=== PATIENT | female | born 1950 | race Caucasian/White ===

== ENCOUNTER 2025-04-25 14:32 | Emergency (ER) | payer MEDICARE, SELFPAY ==
[2025-04-25 14:32] VITALS: BP 175/64; PULSE 75; RESP 16; TEMP 37.3; O2SAT 95
--- OUTSIDE RECORDS SUMMARY | 2025-04-25 14:35 | XMS_ITS | Encounter Summary ---
Author Organization [facility] Healthcare Address [address] [place] [address] Care Team Providers Care Marine Electrician Name Role Phone Isac Fregoso MD Primary Care Provider [phone] Nguyen Segovia OD Unavailable [phone] Marly Koch DO Unavailable [phone] Ree Carrero OD Unavailable + Encounter Details Date Type Department Care Team (Late st Contact Info) Description 01/06/2025 Orders Only [facility] [address] [place] [phone] Scanning, Provider Social History Tobacco Use Types Packs/Day Years Used Date Smoking Tobacco: Never Passive Smoke Exposure: Yes Smokeless Tobacco: Never Alcohol Use Standard Drinks/Week Comments Yes 0 (1 standard drink = 0.6 oz pur e alcohol) occassional AUDIT-C Answer Date Recorded Q1: How often do you have a drink containing alc ohol? Monthly or less 06/16/2021 Q2: How many drinks containi ng alcohol do you have on a typical day when you are drinking? 1 or 2 06/16/2021 Q3: How often do you have si x or more drinks on one occasion? Less than monthly 06/16/2021 PHQ-2 Answer Date Recorded PHQ-2 Total Score (If total score is 3 or more points, staff should administer the PHQ-9) 0 10/15/2023 Personal Safety Answer Date Recorded Have you ever been in or are you currently in a harmful physical or emotional relationship or is someone making you feel afraid or unsafe? Denies 08/28/2023 Comments No Sex and Gender Information Value Date Recorded Sex Assigned at Not on file Legal Sex Female 2:14 AM CEMENT WORKER Gender Identity Not on file Sexual Orientation Not on file documented as of this encounter Plan of Treatment Upcoming Encounters Date Type Department Care Team (Late st Contact Info) Description 11/11/2025 10:30 AM CEMENT WORKER Hospital Encounter [address] [address] Jm Prabhakar MD [address] [address] [place] [address] 11/11/2025 10:30 AM CEMENT WORKER - 11/11/2025 11:00 AM CEMENT WORKER Surgery [address] [address] Jm Prabhakar MD [address] [address] [place] [address] COLONOSCOPY Scheduled Procedures Name Priority Associated Diagnoses Date/Ti me COLONOSCOPY History of colonic polyps Family history of colon cancer 11/11/2025 10:30 AM CEMENT WORKER documented as of this encounter Procedures Procedure Name Priority Date/Time Associated Diagnosis Comments PROCEDURE - RESULT 01/06/2025 documented in this encounter Results * PROCEDURE - RESULT (01/06/2025) us Provider Scanning Final Result documented in this encounter Visit Diagnoses Not on filedocumented in this encounter Care Teams Marine Electrician Relationship Specialty Start Date End Date Isac Fregoso MD [address] [place] [address] PCP - General 12/27/16 Nguyen Segovia OD [address] [place] [address] Consulting Physician Optometry 11/24/17 Marly Koch DO [address] [place] [id number] Consulting Physician Optometry 06/11/18 Ree Carrero OD [address] [place] [id number] Consulting Physician Optometry 02/14/22 documented as of this encounter
--- OUTSIDE RECORDS SUMMARY | 2025-04-25 14:35 | XMS_ITS | Referral Summary ---
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 Phone Keyonna Delatorre MD Primary Care Provider [phone] Nguyen Segovia OD Unavailable [phone] Marly Koch DO Unavailable [phone] Ree Carrero OD Unavailable + Encounters Date Type Department Care Team Description 03/02/2025 Telephone [facility] [place] [address] [place] [address] Albania Dillard 03/02/2025 9:30 AM CDT Office Visit [facility] [place] [facility] [address] [place] [address] Bessy Gonzalez NP Type 2 diabetes mellitus without complication, without long-term current use of insulin (HCC) (Primary Dx); Hypertension associated with type 2 diabetes mellitus (HCC); Vitamin D deficiency; Benign hypertension; Diabetes mellitus without complication (HCC); Colon cancer screening from Last 3 Months Allergies Active Allergy Reactions Criticality Noted Date Comments Hydrocodone Itching,Rash Medium Reaction: Rash, , Reaction: Itching, Hydrocodone-Acetaminophen Medications calcium citrate-vitamin D3 (CITRACAL WITH D) 315 mg- 250 unit per tablet Take 2 tablets by mouth 2 (two) times a day Active lancets 33 gauge misc Test BS daily. 100 each 2 3 Active blood glucose diagnostic (OneTouch Verio test strips) strip 1 each by other route as directed 3 Active ergocalciferol (VITAMIN D) 50,000 unit capsuleIndication s:Vitamin D Deficiency Take 1 capsule (50,000 Units total) by mouth once a week 12 capsule 3 4 Active carvediloL (COREG) 12.5 mg tabletIndications :Benign hypertension Take 1 tablet (12.5 mg total) by mouth 2 (two) times a day with meals 180 tablet 1 5 Active blood glucose diagnostic (OneTouch Verio test strips) stripIndications: Diabetes mellitus without complication (HCC) USE TO TEST BLOOD SUGAR DAILY 100 each 4 5 Active metFORMIN (GLUCOPHAGE) 1,000 mg tabletIndications :Type 2 diabetes mellitus without complication, without long-term current use of insulin (HCC) Take 1 tablet (1,000 mg total) by mouth daily with breakfast 90 tablet 1 5 Active valsartan (DIOVAN) 160 mg tabletIndications :Hypertension associated with type 2 diabetes mellitus (HCC) Take 1 tablet (160 mg total) by mouth nightly 90 tablet 1 5 Active Active Problems Problem Noted Date Diagnosed Date History of colonic polyps 03/02/2025 Cardiovascular risk factor 10/10/2023 Overview (10/10/2023): Ten year risk 37% as of September 2023. Assessment & Plan (08/07/2024 4:46 PM MANAGER MARKETING COMMUNICATION): New problem identified earlier this year. She needs updated labs, but risk assessment will most likely be similar to previous values with a 10 year cardiovascular risk of around 30%. I asked her to consider taking a statin medication to reduce cardiovascular risk. She will think about it and we will discuss it l by phone next week Assessment & Plan (10/15/2023 10:52 AM MANAGER MARKETING COMMUNICATION): Ten year cardiovascular risk is about 37%. She does not want to take a cholesterol medicine. She wants to keep working on her diet. We will see her back in six months. Vitamin D deficiency 10/01/2023 Overview (10/10/2023): Mild Assessment & Plan (08/02/2024 10:09 AM MANAGER MARKETING COMMUNICATION): New problem as of earlier this year, unchanged despite taking a calcium plus vitamin D3 supplement. We ordered a high dose vitamin D2 supplement and we will check a follow-up level in several months. Assessment & Plan (11/01/2023 11:58 AM MANAGER MARKETING COMMUNICATION): She takes a supplement. We will check a follow-up level with her next set of labs in six months. Closed fracture of malleolus of left ankle with routine healing 08/28/2023 Overview (10/10/2023): She missed the last step on stairs at home, heard a pop, went to ER at [facility]. Follow-up imaging on 09/03/[address] [facility] in [place] shows normal healing. >>OVERVIEW FOR CLOSED FRACTURE OF PART OF FIBULA WRITTEN ON 10/10/2023 5:29 AM BY KEYONNA DELATORRE MD Subacute transverse fracture near tip of distal left fibula without remarkable displacement or angulation. Calcaneal spurs. [facility]. Assessment & Plan (08/02/2024 10:05 AM MANAGER MARKETING COMMUNICATION): New problem as of last winter. She missed the last step on stairs at home, heard a pop. Imaging showed a fracture at the tip of the distal left fibula without displacement. She was managed conservatively and still has a little bit of discomfort in the ankle. This qualifies as a fragility fracture so we recommended that she start on medication to improve bone density. Vitamin-D level remains little low so we started her on high-dose vitamin-D. She will read about bisphosphonates and other options for treatment and let me know about her decision. Assessment & Plan (10/15/2023 10:52 AM MANAGER MARKETING COMMUNICATION): She took a bad step off of her deck recently and suffered an avulsion fracture of the left distal fibula. This qualifies as a fragility fracture. We discussed this in relation to her low bone density and recommendations for bisphosphonates or other therapy. She wants to see what her follow-up bone density is first before deciding on treatment. Perennial non-allergic rhinitis 03/29/2022 Overview (10/09/2022): Sphenoid surgery in 2019 helped, but has had a recurrence of chronic nasal congsstion and watery eyes. Assessment & Plan (04/09/2023 10:12 AM CDT): Astelin did not help her chronic cough or nasal drainage. We removed it from her list. Assessment & Plan (10/09/2022 10:40 AM MANAGER MARKETING COMMUNICATION): She has chronic, probably non-allergic, sinus congestion and drainage. Her eyes also water constantly, but there is no itching or redness. We will have her try Astelin for the nasal congestion. If this does not work, we recommended a trial of nasal steroids. We discussed a trial of eye drops for the watery eyes, e.g., Cromolyn, but since the etiology is unclear, we are deferring for now. Chronic right shoulder pain 10/30/2019 Overview (08/21/2020): Deep pain, worse at night. Mostly anterior. No known injury. Assessment & Plan (08/27/2020 3:39 PM MANAGER MARKETING COMMUNICATION): Her right shoulder has been bothering her for the past 8-9 months. No known injury. It is a deep pain and is worse at night. Exam is fairly unremarkable, although there is some tenderness of the AC joint where her bra strap settles. She does not want a referral to physical therapy right now. She will look up exercises to do at home and call for imaging and referral if things are not improving. Family history of colon cancer 10/05/2019 Overview (10/08/2022): Added automatically from request for surgery [id number], Tubular adenoma, transverse colon, removed, Dr. Prabhakar, [facility], 11/17/2019. Low bone density 06/21/2019 Overview (11/11/2023): FINDINGS: The mean bone mineral content of the lumbar spine is 1.039 g/cm2. The T-score is -0.1 consistent with normal bone mineral density. The mean bone mineral content of the left hip is 0.899 g/cm2. The neck T-score is -1.1. The total T-score is -0.4. This is consistent with osteopenia. 10 year fracture risk for major osteoporotic fracture is 8.3%, for hip fracture 0.7%. Impression 1. WHO CLASSIFICATION FOR LUMBAR SPINE IS NORMAL. 2. [facility] OR CLASSIFICATION FOR HIP IS OSTEOPENIA. Follow-up bone density on 08/10/2021 shows similar results. Follow up on 11/10/2023, femoral neck T score -1.6. Assessment & Plan (08/02/2024 10:08 AM MANAGER MARKETING COMMUNICATION): Chronic, present for more than five years with a recent fragility fracture. We recommended treatment with a bisphosphonate, PTH analogue, or osteoclast inhibitor, risks of various medications discussed. She wants to think about the options and let me know. Part of the problem is that she has difficulty affording prescription medications. Assessment & Plan (10/15/2023 10:54 AM MANAGER MARKETING COMMUNICATION): She takes calcium and vitamin-D supplements. She is due for a follow-up bone density which we ordered today. Assessment & Plan (04/09/2023 10:11 AM CDT): She takes calcium and vitamin-D supplements. Continue same. Assessment & Plan (10/09/2022 10:32 AM MANAGER MARKETING COMMUNICATION): She is on calcium and vitamin D supplements. Continue same. Assessment & Plan (10/07/2021 5:21 AM MANAGER MARKETING COMMUNICATION): She takes calcium and vitamin-D. A recent bone density was stable compared to two years ago, normal at the lumbar spine and low bone density in the hip. Continue same. Assessment & Plan (02/21/2021 2:04 PM CDT): She is on a calcium plus vitamin-D supplement. Continue same. Assessment & Plan (08/21/2020 12:53 PM MANAGER MARKETING COMMUNICATION): She takes calcium and vitamin-D supplements. Continue same. Assessment & Plan (02/14/2020 10:14 AM CDT): She has started to take a calcium and vitamin-D supplement which should mitigate some of the mild osteopenia diagnosed recently. Family hx of colon cancer 05/12/2019 Overview (05/12/2019): Added automatically from request for surgery [id number] Chronic sphenoidal sinusitis 10/10/2018 Overview (02/13/2020): Resolved after surgery per ENT Assessment & Plan (10/09/2022 10:29 AM MANAGER MARKETING COMMUNICATION): She has chronic, probably non-allergic, sinus congestion and drainage. This improved for a while after sphenoid sinus surgery about 4 years ago, but symptoms have recurred. She did not respond to a 3 month trial of oral antihistamines last year. We will have her try Astelin or Flonase which are available OTC (starting with Astelin). Assessment & Plan (10/28/2018 8:31 AM MANAGER MARKETING COMMUNICATION): Patient has been diagnosed with a chronic fungal sphenoid sinusitis. Patient is status post image guided endoscopic left sphenoidotomy with evacuation of sphenoid contents. Preoperative symptoms have resolved. Patient is no longer experiencing a left-sided headache. No further treatment is indicated at this time. Patient can follow back up as needed. Assessment & Plan (10/10/2018 10:19 AM MANAGER MARKETING COMMUNICATION): Patient has a completely opacified left sphenoid sinus with soft tissue eroding through the ostium entering into the sphenoid ethmoidal recess. This was identified on CT imaging that was obtained as result of chronic left-sided ocular and perifacial headaches that are likely the result of these findings. Based on patient's history, my physical findings and results of diagnostic imaging patient meets indications to undergo a left image guided endoscopic sphenoidotomy with evacuation of sphenoid contents. Specimen will be obtained for histopathology in possible cultures. The procedure was explained in detail to the patient and her as well as expected postoperative outcome and recovery. All questions were answered to what appeared to be patient's understanding and satisfaction. After the procedure was explained in full the potential risk, complications, benefits and alternatives patient would like to proceed. Patient will be scheduled in a timely fashion. Hypertension associated with type 2 diabetes franchesca litus 10/22/2016 Overview (01/03/2017): Benign hypertension Assessment & Plan (08/07/2024 4:49 PM MANAGER MARKETING COMMUNICATION): Chronic, present for more than five years, uncontrolled with systolic above goal. She does not check blood pressure regularly at home. We recommended increasing valsartan to 160 mg nightly. We asked her to start checking blood pressure more regularly at home and call us in about two weeks with readings. BP Readings from Last 3 Encounters: 08/02/24 152/76 10/15/23 150/80 08/28/23 166/71 Assessment & Plan (11/01/2023 11:57 AM MANAGER MARKETING COMMUNICATION): Systolic blood pressure in the office is mildly elevated. She does not check regularly at home. We discontinued lisinopril awhile back because of a bad cough with resolution of those symptoms. She is on carvedilol. We discussed options and I recommended starting an angiotensin receptor damián, risks of medication discussed. We will have her start checking blood pressure at home and call us in a month with readings. Assessment & Plan (04/20/2023 3:05 PM CDT): She cut back the carvedilol on her own, thinking she did not need to take it twice a day. Systolic blood pressure is somewhat borderline. We recommended that she resume carvedilol 12.5 mg twice a day. Assessment & Plan (10/09/2022 10:31 AM MANAGER MARKETING COMMUNICATION): Blood pressure is in a good range on current therapy (Coreg 12.5 mg twice a day). She denies chest pain or pressure. Labs are stable. Continue same. Lab Results Component Value Date GLUCOSE 129 (H) 09/06/2022 CALCIUM 9.5 09/06/2022 SODIUM 140 09/06/2022 POTASSIUM 4.6 09/06/2022 CO2 25 09/06/2022 CHLORIDE 107 09/06/2022 BUNSER 22 09/06/2022 CREATININE 0.77 09/06/2022 Assessment & Plan (10/04/2021 2:54 PM MANAGER MARKETING COMMUNICATION): Systolic blood pressure is mildly elevated today. She only checks blood pressures occasionally at home. I recommended more frequent checks and I asked her to call us in two weeks with a report to see if medications need to be adjusted. Assessment & Plan (07/15/2021 4:03 PM CDT): She has not been taking the losartan prescribed at the hospital. She thought it was one that gave her a bad cough a few years ago, but I believe that was lisinopril. I reviewed the records, and the stated reason for stopping the losartan three years ago was cost. Since her blood pressure is in a reasonable range at this time, we will see how she is doing at her follow-up. Assessment & Plan (02/26/2021 9:59 AM CDT): Systolic blood pressure is somewhat borderline. She is on carvedilol 12.5 twice a day. Her recent labs are stable. Continue same and follow-up in six months. Lab Results Component Value Date GLUCOSE 155 (H) 02/13/2021 CALCIUM 9.4 02/13/2021 SODIUM 141 02/13/2021 POTASSIUM 5.1 02/13/2021 CO2 27 02/13/2021 CHLORIDE 106 02/13/2021 BUNSER 18 02/13/2021 CREATININE 0.76 02/13/2021 Assessment & Plan (08/21/2020 12:53 PM MANAGER MARKETING COMMUNICATION): Blood pressure is in a good range on current therapy. Continue same, and follow- up in six months. Assessment & Plan (02/14/2020 10:14 AM CDT): She is not checking blood pressure regularly at home, and when she took it this morning the systolic was somewhat borderline. Diastolic is in a good range. She denies having any chest pain. We discussed possibly increasing the dose of olmesartan, but she would like to continue efforts to lose weight and see if that brings her blood pressure down into a better range. We will see her again in six months. Assessment & Plan (06/14/2019 10:03 AM CDT): Blood pressure is a bit high. For some reason, she stopped taking Benicar. It is unclear exactly why. She does not remember having any side effects. We sent in a refill. Hopefully this will bring her blood pressure down. Follow-up in six months. Assessment & Plan (11/26/2018 10:43 AM MANAGER MARKETING COMMUNICATION): Blood pressure remains mildly elevated. She did not tolerate lisinopril because of a cough. We will put her on Benicar. Hopefully this will bring blood pressure down into a better range. Follow-up in six months. Assessment & Plan (05/25/2018 9:58 AM CDT): Blood pressure is in a good range. She is tolerating her medications. Labs are stable. Continue same and follow-up in six months. Assessment & Plan (11/24/2017 9:50 AM MANAGER MARKETING COMMUNICATION): Blood pressure is improved but still somewhat borderline. If it remains elevated at her next visit, we will probably want to add a medication or increase the dose of carvedilol. Carpal tunnel syndrome 07/22/2016 Overview (01/04/2017): Carpal tunnel syndrome Polyp of colon 02/13/2016 Overview (02/13/2020): Tubular adenoma, transverse colon, removed, Dr. Prabhakar, [facility], 11/17/2019. Type 2 diabetes mellitus without complication Overview (01/03/2017): Type 2 DM Assessment & Plan (08/07/2024 4:51 PM MANAGER MARKETING COMMUNICATION): Chronic, uncontrolled, hemoglobin A1c currently not at goal consistent with hyperglycemia. She has had significant social disruptions with her 's various maladies. Since the change is minimal, we left her on her current dose of metformin 1000 mg daily and encouraged her to work on her diet. We will see her back in six months with labs. Lab Results Component Value Date HGBA1C 7.2 (H) 03/25/2024 HGBA1C 7.0 (H) 10/01/2023 HGBA1C 6.8 (H) 03/25/2023 Lab Results Component Value Date MICROALBUR 0.7 10/01/2023 CREATININE 0.71 10/01/2023 Assessment & Plan (10/15/2023 10:57 AM MANAGER MARKETING COMMUNICATION): She takes metformin. Diabetes control is adequate. She is due for eye exam. Follow-up in six months with labs. Lab Results Component Value Date HGBA1C 7.0 (H) 10/01/2023 HGBA1C 6.8 (H) 03/25/2023 HGBA1C 6.7 (H) 09/06/2022 Lab Results Component Value Date MICROALBUR 0.7 10/01/2023 CREATININE 0.71 10/01/2023 Assessment & Plan (04/09/2023 10:13 AM CDT): Diabetes is well controlled with metformin and diet. Fasting blood sugars typically are 90-120 mg/dL. HbA1c is in a good range. She actually reduced the dose of metformin about 2-3 weeks ago from 1000 mg twice a day to 1000 mg daily which is reasonable. We will see her back in six months. Lab Results Component Value Date HGBA1C 6.8 (H) 03/25/2023 HGBA1C 6.7 (H) 09/06/2022 HGBA1C 6.7 (H) 03/28/2022 Lab Results Component Value Date MICROALBUR 0.3 10/10/2022 CREATININE 0.77 09/06/2022 Assessment & Plan (10/09/2022 10:33 AM MANAGER MARKETING COMMUNICATION): Blood sugar is well-controlled on current Rx. Continue same. Follow up in 6 months. Lab Results Component Value Date HGBA1C 6.7 (H) 09/06/2022 HGBA1C 6.7 (H) 03/28/2022 HGBA1C 7.4 (H) 09/17/2021 Lab Results Component Value Date MICROALBUR 0.5 09/17/2021 CREATININE 0.77 09/06/2022 Assessment & Plan (04/05/2022 1:11 PM CDT): Patient has been working to be more active and avoid fast foods. Her HgbA1C has shown much improvement and is now 6.7%. She is taking metformin and tolerating well. Will continue present medication dose. Encouraged continued lifestyle modification. She will have f/u diabetic labs prior to her annual visit. Assessment & Plan (10/07/2021 5:21 AM MANAGER MARKETING COMMUNICATION): Blood sugars generally run 100-120 mg/dL in the morning. Once she had a blood sugar as low as 86. HbA1c reflects a possibly higher average blood sugar. She apparently did not adhere to a strict diet over the holidays. Overall she seems to be doing pretty well so we will continue current therapy and have her follow-up in six months. Her diabetic eye exam is due between now and then. Lab Results Component Value Date HGBA1C 7.4 (H) 09/17/2021 HGBA1C 7.0 (H) 02/13/2021 HGBA1C 6.9 (H) 08/17/2020 Lab Results Component Value Date MICROALBUR 0.5 09/17/2021 CREATININE 0.72 09/17/2021 Assessment & Plan (06/29/2021 2:32 PM CDT): She was previously pretty well controlled on 500 mg metformin twice a day. In the hospital and on steroids, she had to have insulin shots. Blood sugar in the office today is 279, so there is probably some residual effect of the steroids. We will increase the metformin to 1000 mg twice a day. She will start to check blood sugar at home again. Follow-up in August as scheduled or sooner if needed. Lab Results Component Value Date GLUCOSE 252 (H) 06/23/2021 CALCIUM 8.8 06/23/2021 SODIUM 140 06/23/2021 POTASSIUM 4.2 06/23/2021 CO2 27 06/23/2021 CHLORIDE 104 06/23/2021 BUNSER 20 06/23/2021 CREATININE 0.63 06/23/2021 Assessment & Plan (02/21/2021 2:03 PM CDT): Diabetes is well controlled with metformin and diet. Continue same, and follow- up in six months. Lab Results Component Value Date HGBA1C 7.0 (H) 02/13/2021 Assessment & Plan (08/27/2020 3:34 PM MANAGER MARKETING COMMUNICATION): Blood sugars have been in a good range and sometimes even a little low. This morning blood sugar was 84 mg%. A few days ago it was down as low as 54 mg% and was associated with some nausea. Hemoglobin A1c is in a good range. We will lower the dose of metformin to 500 mg twice a day and she will continue to monitor blood sugars at home. We discussed the recommendation for all patients with diabetes to take a statin medication, but she says her cholesterol numbers have always been good, and she does not want to take one at this time. We will revisit this issue periodically. Lab Results Component Value Date HGBA1C 6.9 (H) 08/17/2020 Lab Results Component Value Date CHOL 178 12/06/2019 CHOL 176 11/09/2018 CHOL 185 04/24/2018 Lab Results Component Value Date HDL 67 12/06/2019 HDL 69 11/09/2018 HDL 73 04/24/2018 Lab Results Component Value Date LDL 88 12/06/2019 LDL 86 11/09/2018 LDL 88 04/24/2018 Lab Results Component Value Date TRIG 124 12/06/2019 TRIG 113 11/09/2018 TRIG 142 04/24/2018 Assessment & Plan (02/14/2020 10:15 AM CDT): Blood sugars seem to be in a pretty good range, and hemoglobin A1c shows good control. Other labs are stable and there is no protein in the urine. She had her diabetic eye exam recently, we will get that report. We will see her back in six months. Assessment & Plan (06/14/2019 10:05 AM CDT): Blood sugars are pretty well controlled, mostly in the low 100 mg/dL range. This is reflected in a hemoglobin A1c of 7.1% which is adequate control for now. Her eye exam is due, and she will get that done. Remainder of her exam is unremarkable. We will see her back in six months with additional follow-up diabetic labs. Assessment & Plan (12/01/2018 2:35 PM MANAGER MARKETING COMMUNICATION): Hemoglobin A1c has a bit higher at 7.4. This surprises her because her blood sugars are usually in the low 100 mg/dL range when she checks them at home. She will work harder on her diet and on some weight loss and we will get a follow-up in six months. Assessment & Plan (05/25/2018 10:03 AM CDT): Blood sugars are in the low 100 mg/dL range when she checks at home. Hemoglobin A1c is 6.9. There is no protein in her urine. She had a recent eye exam that showed no diabetic retinopathy. In general she is well controlled and we will continue current therapy. Assessment & Plan (11/24/2017 9:49 AM MANAGER MARKETING COMMUNICATION): Hemoglobin A1c on recent labs was 6.5 which represents pretty good control. Sometimes her morning blood sugars are 150-160, other times as low as 89. She will continue to work on her diet and continue medications as prescribed. Follow-up in six months. Family history of ischemic h eart disease and other diseases of the circulatory system 09/12/2011 Overview (08/21/2020): Per [facility] records. Neuropathy 02/27/2006 Overview (01/03/2017): Neuropathy Assessment & Plan (11/26/2018 10:44 AM MANAGER MARKETING COMMUNICATION): She has a peripheral neuropathy in her feet which predates the onset of her diabetes. She also has what could be a mononeuritis in the right lower thoracic distribution. It has defied diagnostic efforts. It could also be a pinched nerve in her back. It seems to be exacerbated by changes in position which suggests a more mechanical cause. Sometimes it can be as severe as 9/10. We discussed possible referral to Pain Management for further evaluation and treatment. However, she wants to continue observing for now and see if it gets better. I recommended some mild stretching exercises and weight loss. Assessment & Plan (05/25/2018 10:01 AM CDT): She has an unexplained neuropathy in her legs, could be due to diabetes but in general her diabetes is well controlled so this seems unlikely. Her monofilament exam is normal. Continue to monitor. Class 1 obesity due to exces s calories with serious comorbidity and body mass index (BMI) of 30.0 to 30.9 in adult 02/27/2006 Overview (08/01/2024): BMI fluctuates. Assessment & Plan (08/02/2024 10:03 AM MANAGER MARKETING COMMUNICATION): Chronic, uncontrolled but stable. Weight has not really changed. We encouraged attention to her diet and hopefully some weight loss. Assessment & Plan (10/15/2023 10:54 AM MANAGER MARKETING COMMUNICATION): We encouraged attention to her diet, and hopefully a little bit of weight loss. Assessment & Plan (04/09/2023 10:11 AM CDT): Her weight is stable. We encouraged attention to her diet and hopefully a little bit of weight loss. Assessment & Plan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 individualized based on duration of diabetes, age, comorbid conditions, and other considerations. Currently, no consensus exists regarding use of hemoglobin A1c for diagnosis of diabetes for children. Blood 01/11/2025 8:37 AM CDT 01/12/2025 11:48 AM CDT Narrative [facility] - 01/13/2025 12:33 PM CDT FASTING:YES FASTING: YES Keyonna Delatorre MD LAB BLOOD ORDERABLES Final Re sult [facility] [address] [facility] [place] [address] * Lipid panel (01/11/2025 8:37 AM CDT) Pathologist [facility] [place] Cholesterol 192 <200 mg/dL [facility] HDL 80 > OR = 50 mg/dL [facility] Triglycerides 80 <150 mg/dL [facility] LDL 95 mg/dL (calc) [facility] Comment: Reference range: <100 Desirable range <100 mg/dL for primary prevention; <70 mg/dL for patients with CHD or diabetic patients with > or = 2 CHD risk factors. LDL-C is now calculated using the Brendan-Lipscomb calculation, which is a validated novel method providing better accuracy than the Friedewald equation in the estimation of LDL-C. Brendan BUCHANAN et al. JOHN. 2013;310(19): 5027-5723 (http://education.Ecast.Kronomav Sistemas/faq/RDE221) Chol/HDL ratio 2.4 <5.0 (calc) [facility] Non-HDL, (LDL+VLDL) 112 <130 mg/dL (calc) [facility] Comment: For patients with diabetes plus 1 major ASCVD risk factor, treating to a non-HDL-C goal of <100 mg/dL (LDL-C of <70 mg/dL) is considered a therapeutic option. Blood 01/11/2025 8:37 AM CDT 01/12/2025 11:48 AM CDT Narrative [facility] - 01/13/2025 12:33 PM CDT FASTING:YES FASTING: YES us Keyonna Delatorre MD LAB BLOOD ORDERABLES Final Re sult [facility] [address] [id number] * (ABNORMAL) Comprehensive metabolic panel (01/11/2025 8:37 AM CDT) Glucose 147(H) 65 - 99 mg/dL [facility] Comment: Fasting reference interval For someone without known diabetes, a glucose value >125 mg/dL indicates that they may have diabetes and this should be confirmed with a follow-up test. BUN 18 7 - 25 mg/dL [facility] Creatinine 0.80 0.60 - 1.00 mg/dL [facility] eGFR 78 > OR = 60 mL/min/1.7 3m2 [facility] BUN/creat ratio SEE NOTE: 6 - 22 (calc) [facility] Comment: Not Reported: BUN and Creatinine are within reference range. Sodium 141 135 - 146 mmol/L [facility] Potassium, pl 5.0 3.5 - 5.3 mmol/L [facility] Chloride 106 98 - 110 mmol/L [facility] CO2 29 20 - 32 mmol/L [facility] Calcium 9.3 8.6 - 10.4 mg/dL [facility] Protein, sr 6.6 6.1 - 8.1 g/dL [facility] Albumin 4.3 3.6 - 5.1 g/dL [facility] GLOBULIN 2.3 1.9 - 3.7 g/dL (calc) [facility] Alb/glob ratio 1.9 1.0 - 2.5 (calc) [facility] Bilirubin, total 0.7 0.2 - 1.2 mg/dL [facility] Alk phos 59 37 - 153 U/L [facility] AST 13 10 - 35 U/L [facility] ALT (SGPT) 14 6 - 29 U/L [facility] Blood 01/11/2025 8:37 AM CDT 01/12/2025 11:48 AM CDT Narrative [facility] - 01/13/2025 12:33 PM CDT FASTING:YES FASTING: YES us Keyonna Delatorre MD LAB BLOOD ORDERABLES Final Re sult [facility] [address] [id number] * DIABETES EYE EXAM (01/06/2025 10:08 AM CDT) SCRIBED DIABETIC DILATED EYE EXAM Normal Comment:No diabetic retinopa thy/ patient refused dilated fundus exam Historical Provider HEALTH MAINTENANCE Final Result * Screening Mammogram Bilateral W Axel (04/08/2024 8:45 AM CDT) Anatomical Region Laterality Modality Breast Bilateral Mammography 04/08/2024 5:48 PM CDT Impressions 04/08/2024 5:48 PM CDT There is no mammographic evidence of malignancy. A 1 year screening mammogram is recommended. BI-RADS: 1 - Negative. The patient has been or will be contacted. The patient will be entered into a reminder system with a target due date of 1 year for her next mammogram. Electronically signed by: Venancio Morrison M.D. Narrative 04/08/2024 5:48 PM CDT EXAMINATION: SCREENING MAMMOGRAM BILATERAL W AXEL ORDERING HEALTHCARE PROVIDER: KEYONNA DELATORRE HISTORY: Routine screening mammography. COMPARISON: 10/16/2022, 10/09/2021, 09/01/2020 TECHNIQUE: CC and MLO views of the bilateral breasts were obtained with digital technique using breast tomosynthesis with C view. Computer aided detection was utilized. FINDINGS: DENSITY: There are scattered fibroglandular elements in the bilateral breasts. BREASTS: There are no suspicious masses, suspicious calcifications, or other suspicious findings in either breast. There has been no suspicious interval change. 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 FINDINGS: AP LUMBAR SPINE L1-L4: Total BMD is 1.077 g/cm2 T-score is 0.3 LEFT HIP: Total BMD is 0.939 g/cm2 T-score is 0.0 Femoral neck BMD is 0.675 g/cm2 T-score is -1.6 FRAX: 10 year risk for a major osteoporotic fracture is 10 %, 10 year risk for a hip fracture is 1.6 % IMPRESSION: Low Bone Mass. REFERENCE: Bone mineral density: Normal (T-score above or = -1.0) Low bone mass (T-score between -1.0 and -2.5) replaces the previously used term osteopenia Osteoporosis (T-score = or below -2.5) Please see below follow up recommendations. Medical evaluation for secondary causes of low bone mineral density may be appropriate. FRAX is a World Health Organization validated fracture risk assessment tool that calculates a person's 10 year probability of a major osteoporosis related fracture and hip fracture. According to the National Osteoporosis Foundation guidelines, postmenopausal women and men age 50 or older with low bone mass and a 10 year probability of a major osteoporosis related fracture = or greater than 20% or a 10 year probability of a hip fracture = or greater than 3% should be considered for pharmacological treatment for the prevention of osteoporosis. For further information, including treatment recommendations, please refer to the 2019 ISCD Official Positions (http://www.iscd.org) and the NOF's Clinician's Guide to Prevention and Treatment of Osteoporosis (http://www.nof.org/professionals/clinical-guidelines) THIS IS AN ELECTRONICALLY VERIFIED FINAL REPORT 11/10/2023 8:12 PM - Electronically signed by Stiven Galeano M.D. 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 FINDINGS: AP LUMBAR SPINE L1-L4: Total BMD is 1.077 g/cm2 T-score is 0.3 LEFT HIP: Total BMD is 0.939 g/cm2 T-score is 0.0 Femoral neck BMD is 0.675 g/cm2 T-score is -1.6 FRAX: 10 year risk for a major osteoporotic fracture is 10 %, 10 year risk for ahip fracture is 1.6 % IMPRESSION: Low Bone Mass. REFERENCE: Bone mineral density: Normal (T-score above or = -1.0) Low bone mass (T-score between -1.0 and -2.5) replaces thepreviously used term osteopenia Osteoporosis (T-score = or below -2.5) Please see below follow up recommendations. Medical evaluation forsecondary causes of low bone mineral density may be appropriate. FRAX is a World Health Organization validated fracture risk assessmenttool that calculates a person's 10 year probability of a major osteoporosisrelated fracture and hip fracture. According to the National OsteoporosisFoundation guidelines, postmenopausal women and men age 50 or older with low bonemass and a 10 year probability of a major osteoporosis related fracture = or greater than 20% or a 10 year probability of a hip fracture = or greaterthan 3% should be considered for pharmacological treatment for the preventionof osteoporosis. For further information, including treatment recommendations, please referto the 2019 ISCD Official Positions (http://www.iscd.org) and the NOF's Clinician's Guide to Prevention and Treatment of Osteoporosis (http://www.nof.org/professionals/clinical-guidelines) THIS IS AN ELECTRONICALLY VERIFIED FINAL REPORT 11/10/2023 8:12 PM - Electronically signed by Stiven Galeano M.D. MF: [email or web address] Report ID: [id number] Reading Location: [place] [address] Keyonna Delatorre MD IMG DXA PROCEDURES Final Resu lt * Hepatitis C antibody (12/06/2019 8:30 AM CDT) Hep C Ab NON-REACT JESUS MANUEL NON-REACT JESUS MANUEL [facility] [place] SIGNAL TO CUT-OFF 0.01 <1.00 [facility] [place] Comment: HCV antibody was non-reactive. There is no laboratory evidence of HCV infection. In most cases, no further action is required. However, if recent HCV exposure is suspected, a test for HCV RNA (test code 42474) is suggested. For additional information please refer to http://education.SynAgile/faq/RVY14y2 (This link is being provided for informational/ educational purposes only.) 12/06/2019 8:30 AM CDT 12/07/2019 8:03 AM CDT Narrative [facility] - 12/07/2019 1:34 PM CDT FASTING:YES FASTING: YES Resulting Agency Comment Performing Organization Information: Site ID: [id number] Name: [id number] Address: [address] [address] Director: Jeff Duran D.O., MPH Keyonna Delatorre MD LAB MICROBIOLOGY - GENERAL OR DERABLES Final Result [facility] [place] * COLONOSCOPY (11/17/2019 8:55 AM MANAGER MARKETING COMMUNICATION) Anatomical Region Laterality Modality Other Narrative Procedure Note Jm Prabhakar MD - 11/17/2019 8:55 AM CST [facility] Patient Name: Allyson Reyes Procedure Date: 11/17/2019 8:55 AM Date of : 1950 Admit Type: Outpatient Age: 68 Gender: Female Attending MD: Jm Prabhakar M.D. Room: [facility] 1 Note Status: Finalized Patient Profile: This is a 68 year old female. History of polyps. Grandfather had colon cancer. Procedure: Colonoscopy Indications: Last colonoscopy: January 2016 Referring MD: Keyonna Delatorre M.D. Providers: Jm Prabhakar M.D. Impression: - One 4 mm polyp at the ileocecal valve, removedwith a jumbo cold forceps. Resected and retrieved. - One 3 mm polyp in the proximal transverse colon, removed with a jumbo cold forceps. Resected and retrieved. - Diverticulosis in the sigmoid colon. - Internal hemorrhoids. Recommendation: - Await pathology results. - Repeat colonoscopy in 5 years for screeningpurposes. - Continue present medications. Medicines: Monitored Anesthesia Care Complications: No immediate complications. Estimated Blood Loss: Estimated blood loss: none. Procedure: Pre-Anesthesia Assessment: - Prior to the procedure, a History and Physical was performed, and patient medications and allergieswere reviewed. The patient's tolerance of previous anesthesia was also reviewed. The risks and benefitsof the procedure and the sedation options and riskswere discussed with the patient. All questions were answered, and informed consent was obtained. Prior Anticoagulants: The patient has taken no previous anticoagulant or antiplatelet agents. ASA Grade Assessment: II - A patient with mild systemicdisease. After reviewing the risks and benefits, the patientwas deemed in satisfactory condition to undergo the procedure. The benefits, risks and alternatives of theprocedure and sedation were discussed and informed consent was obtained. All questions were answered. Please referto the signed informed consent document in the medical record. The scope was passed under direct vision.The Pediatric Colonoscope PCF-H190L [id number] was introduced through the anus and advanced to the the cecum, identified by appendiceal orifice andileocecal valve. The bowel preparation used was Miralax. The bowel preparation used was bisacodyl tablets. Bowel prep was administered using a split dose. Thequality of the bowel preparation was good. Findings: The perianal and digital rectal examinations were normal. The cecum appeared normal. A 4 mm polyp was found in the ileocecal valve. The polyp was flat.The polyp was removed with a jumbo cold forceps. Resection and retrieval were complete. The ascending colon was unremarkable. A 3 mm polyp was found in the proximal transverse colon. The polypwas sessile. The polyp was removed with a jumbo cold forceps. Resectionand retrieval were complete. The descending colon was unremarkable. A few small-mouthed diverticula were found in the sigmoid colon. Internal hemorrhoids were found during retroflexion. The hemorrhoids were medium-sized. Electronically signed by Jm Prabhakar M.D. Jm Prabhakar M.D. 11/17/2019 9:51:14 AM Number of Addenda: 0 Note Initiated On: 11/17/2019 8:55 AM Procedure Code(s): --- Professional --- 41751, Colonoscopy, flexible; with biopsy, single or multiple Diagnosis Code(s): --- Professional --- K64.8, Other hemorrhoids D12.0, Benign neoplasm of cecum D12.3, Benign neoplasm of transverse colon (hepatic flexure orsplenic flexure) K57.30, Diverticulosis of large intestine without perforation orabscess without bleeding CPT copyright 2017 [employer] [employer]. All rights reserved. The codes documented in this report are preliminary and upon talent acquisition associate reviewmay be revised to meet current compliance requirements. 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 DIRECTIVE 03/02/2025 [facility] - YS ORDER FOR PT PREFERENCES * Full Code (Latest Code Status on File) Date Activated Date Inactivated Comments 06/16/2021 9:01 PM 06/23/2021 11:15 PM * Full Code Date Activated Date Inactivated Comments 11/17/2019 8:08 AM 11/17/2019 2:50 PM * Full Code Date Activated Date Inactivated Comments 11/17/2019 8:08 AM 11/17/2019 8:08 AM Care Teams 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
--- OUTSIDE RECORDS SUMMARY | 2025-04-25 14:35 | XMS_ITS | Clinical Summary ---
Author Organization [facility] Address [address] [place] [address] Care Team Providers Care Canvas Goods Supervisor Name Role Phone Isac Fregoso MD Primary Care Provider [phone] Allergies Active Allergy Reactions Criticality Noted Date Comments Hydrocodone-Acetaminophen Itching 11/18/2011 Medications calcium citrate-vitamin D 315 mg-6.25 mcg 315-6.25 MG-MCG Tab tablet Take 2 tablets by mouth 2 (two) times daily. Active carvedilol (COREG) 12.5 MG tablet Take 1 tablet (12.5 mg total) by mouth 2 (two) times daily with meals. 08/01/2023 Active ONETOUCH VERIO test strip USE TO TEST BLOOD SUGAR DAILY 05/01/2023 Active metFORMIN (GLUCOPHAGE) 1000 MG tablet Take 1 tablet (1,000 mg total) by mouth daily with breakfast. Active Active Problems Problem Noted Date Diagnosed Date Other closed fracture of dis radha end of left fibula with routine healing, subsequent encounter 09/07/2023 Family History Medical History Relation Comments Cancer Father Breast Cancer Maternal Aunt Colon Cancer Maternal Grandfather Diabetes Mother Relation Status Comments Father Maternal Aunt Alive Maternal Grandfather Mother Social History Tobacco Use Types Packs/Day Years Used Date Smoking Tobacco: Never Smokeless Tobacco: Never Tobacco Cessation:Counseling Given: Not Answered Alcohol Use Standard Drinks/Week Comments Not Currently 0 (1 standard drink = 0.6 oz pur e alcohol) Rarely Comments Unknown Sex and Gender Information Value Date Recorded Sex Assigned at Not on file Legal 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 Gender Identity Not on file Sexual Orientation Not on file Last Filed Vital Signs Vital Sign Reading Time Taken Comments Blood Pressure - - Pulse - - Temperature - - Respiratory Rate - - Oxygen Saturation - - Inhaled Oxygen Concentration - - Weight 72.6 kg (160 lb) 10/02/2023 9:48 AM POLICE ACADEMY INSTRUCTOR Height 157.5 cm (5' 2) 10/02/2023 9:48 AM POLICE ACADEMY INSTRUCTOR Body Mass Index 29.26 10/02/2023 9:48 AM POLICE ACADEMY INSTRUCTOR Plan of Treatment Health Maintenance Due Date Last Done Comments Colorectal Cancer Screening Colonoscopy (10 Years) 1950 Hepatitis C 12/08/1969 Mammogram Screening 1991 Zoster Vaccines (1 of 2) 12/08/2001 Annual Medicare Wellness Visit 12/08/2016 Dexa Scan (General) 12/08/2016 COVID-19 Vaccine (1 - 2023-2 5 season) 2024 DTaP, Tdap and Td Vaccines ( 3 - Td or Tdap) 05/23/2025 05/23/2015, 07/31/2009 RSV Immunization or 60+ Years (1 - 1-dose 75+ series) 12/08/2026 Pneumococcal Vaccine: 50+ Years Completed 11/26/2018, 05/26/2017 Meningococcal B Vaccine Aged Out No l onger eligible based on patient's age to complete this topic Meningococcal Vaccine Aged Out No mannie tank eligible based on patient's age to complete this topic RSV Immunizations Under 20 Months Aged Out No longer eligible b ased on patient's age to complete this topic Insurance MEDICARE Care Teams Canvas Goods Supervisor Relationship Specialty Start Date End Date Isac Fregoso MD [address] [place] [id number] PCP - General INFECTIOUS DISEASE 09/03/23
--- OUTSIDE RECORDS SUMMARY | 2025-04-25 14:35 | XMS_ITS | Clinical Summary ---
Author Organization [facility] Address [address] [facility], [place] [address] Phone Care Team Providers Care Cap Sizer Name Role Phone Isac Fregoso MD Primary Care Provider [phone] Chuck Romano DPM Unavailable [phone] Allergies Active Allergy Reactions Criticality Noted Date Comments Hydrocodone-Acetaminophen Itching 03/29/2016 Medications metFORMIN (GLUCOPHAGE) 1000 MG Tablet Take 1,000 mg by mouth 2 times daily (with meals). Active losartan (COZAAR) 50 MG Tablet Take 50 mg by mouth daily. Active SITagliptin (JANUVIA) 100 MG Tablet Take 100 mg by mouth daily. 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 Hammer toe of left foot 03/15/2016 Plantar plate injury 03/15/2016 Metatarsalgia of left foot 03/15/2016 Gastrocnemius equinus of left lower extremity Family History Medical History Relation Name Comments Diabetes Brother Hypertension Brother Cancer Father Cancer Maternal Aunt Cancer Maternal Grandfather Diabetes Maternal Grandmother Diabetes Mother Diabetes Sister Relation Name Status Comments Brother Father Maternal Aunt Maternal Grandfather Maternal Grandmother Mother Sister Social History Tobacco Use Types Packs/Day Years Used Date Smoking Tobacco: Never Tobacco Cessation:Counseling Given: Yes Alcohol Use Standard Drinks/Week Comments Yes 0 (1 standard drink = 0.6 oz pur e alcohol) rarely - social Comments No Sex and Gender Information Value Date Recorded Sex Assigned at Not on file Legal Sex Female 10:34 PM CDT Gender Identity Not on file Sexual Orientation Not on file Last Filed Vital Signs Vital Sign Reading Time Taken Comments Blood Pressure 128/68 01/28/2017 8:51 AM CDT Pulse 73 01/28/2017 8:51 AM CDT Temperature 36.5 C (97.7 F) 01/28/2017 8:51 AM CDT Respiratory Rate 19 01/28/2017 8:51 AM CDT Oxygen Saturation 95% 01/28/2017 8:51 AM CDT Inhaled Oxygen Concentration - - Weight 72.6 kg (160 lb) 01/28/2017 8:51 AM CDT Height 157.5 cm (5' 2) 01/28/2017 8:51 AM CDT Body Mass Index 29.26 01/28/2017 8:51 AM CDT Plan of Treatment Health Maintenance Due Date Last Done Comments Hepatitis C Virus (HCV) Screening 1950 TdaP Immunization 1950 Cologuard 12/08/1996 Colonoscopy 12/08/1996 Colorectal Cancer Screening 12/08/1996 Immunochemical Fecal Occult Blood 12/08/1996 Pneumococcal Immunization (5 0+ years) (1 of 1 - PCV) 12/08/2001 Zoster Immunization (1 of 2) 12/08/2001 SARS-COV-2 Immunization (1 - 2023-25 season) 2024 Influenza Immunization (#1) 2025 Respiratory Syncytial Virus (RSV) Immunization (Adult) (1 - 1-dose 75+ series) 12/08/2026 Hepatitis B Immunization Aged Out No longer eligible based on patient's age to complete this topic Human Papillomavirus (HPV) Immunization Aged Out No longer eligible b ased on patient's age to complete this topic Meningococcal Immunization (ACWY) Aged Out No longer eligible based on patient's age to complete this topic Rotavirus Immunization Aged Out No lo nger eligible based on patient's age to complete this topic Medical Devices Implanted Type Area Desktop Publisher Device Identifier Shelf Expiration Date Model / Serial / Lot Biofoam Wedge Implanted:Qty: 1 on 09/06/2016 by Chuck Romano DPM at [facility] Left: Foot [employer] 03/16/2024 [id number] / / [id number] Pro-Toe Vo Blade Implant Implanted:Qty: 1 on 09/06/2016 by Chuck Romano DPM at [facility] Left: Foot [employer] 11/11/2023 [id number] / / [id number] Snap Off Screw Implanted:Qty: 1 on 09/06/2016 by Chuck Romano DPM at [facility] Left: Foot [employer] [id number] / / [id number] Insurance MEDICARE Care Teams Cap Sizer Relationship Specialty Start Date End Date Isac Fregoso MD [address], [address] [place] [address] PCP - General Infectious Disease 03/07/16 Chuck Romano DPM [employer] [place] [address] Podiatry 03/14/16
--- OUTSIDE RECORDS SUMMARY | 2025-04-25 14:35 | XMS_ITS | Clinical Summary ---
Author Organization [facility] Address [address] [place] [address] Care Team Providers Care Traffic Controller Cable Name Role Phone Keyonna Delatorre MD Primary Care Provider [phone] Nguyen Segovia OD Unavailable [phone] Marly Koch DO Unavailable [phone] Ree Carrero OD Unavailable + Allergies Active Allergy Reactions Criticality Noted Date [...] 2023. Assessment & Plan (08/07/2024 4:46 PM CANDY MIXER): New problem identified earlier this year. She [...] week Assessment & Plan (10/15/2023 10:52 AM CANDY MIXER): Ten year cardiovascular risk is about 37%. She does not want to take a cholesterol medicine. She wants to keep working on her diet. We will see her back in six months. Vitamin D deficiency 10/01/2023 Overview (10/10/2023): Mild Assessment & Plan (08/02/2024 10:09 AM CANDY MIXER): New problem as of earlier this year, unchanged despite taking a calcium plus vitamin D3 supplement. We ordered a high dose vitamin D2 supplement and we will check a follow-up level in several months. Assessment & Plan (11/01/2023 11:58 AM CANDY MIXER): She takes a supplement. We will check a follow-up level with her next set of labs in six months. Closed fracture of malleolus of left ankle with routine healing 08/28/2023 Overview (10/10/2023): She missed the last step on stairs at home, heard a pop, went to ER at [facility]. Follow-up imaging on 09/03/2023 at [facility] in [place] shows normal healing. >>OVERVIEW FOR CLOSED FRACTURE OF PART OF FIBULA WRITTEN ON 10/10/2023 5:29 AM BY KEYONNA DELATORRE MD Subacute transverse fracture near tip of distal left fibula without remarkable displacement or angulation. Calcaneal spurs. [facility]. Assessment & Plan (08/02/2024 10:05 AM CANDY MIXER): New problem as of last winter. She [...] decision. Assessment & Plan (10/15/2023 10:52 AM CANDY MIXER): She took a bad step off of [...] list. Assessment & Plan (10/09/2022 10:40 AM CANDY MIXER): She has chronic, probably non-allergic, sinus congestion [...] injury. Assessment & Plan (08/27/2020 3:39 PM CANDY MIXER): Her right shoulder has been bothering her [...] (10/08/2022): Added automatically from request for surgery [id number], Tubular adenoma, transverse colon, removed, Dr. Prabhakar, [facility], 11/17/2019. Low bone density 06/21/2019 Overview (11/11/2023): [...] -1.6. Assessment & Plan (08/02/2024 10:08 AM CANDY MIXER): Chronic, present for more than five years with a recent fragility fracture. We recommended treatment with a bisphosphonate, PTH analogue, or osteoclast inhibitor, risks of various medications discussed. She wants to think about the options and let me know. Part of the problem is that she has difficulty affording prescription medications. Assessment & Plan (10/15/2023 10:54 AM CANDY MIXER): She takes calcium and vitamin-D supplements. She is due for a follow-up bone density which we ordered today. Assessment & Plan (04/09/2023 10:11 AM CDT): She takes calcium and vitamin-D supplements. Continue same. Assessment & Plan (10/09/2022 10:32 AM CANDY MIXER): She is on calcium and vitamin D supplements. Continue same. Assessment & Plan (10/07/2021 5:21 AM CANDY MIXER): She takes calcium and vitamin-D. A recent bone density was stable compared to two years ago, normal at the lumbar spine and low bone density in the hip. Continue same. Assessment & Plan (02/21/2021 2:04 PM CDT): She is on a calcium plus vitamin-D supplement. Continue same. Assessment & Plan (08/21/2020 12:53 PM CANDY MIXER): She takes calcium and vitamin-D supplements. Continue same. Assessment & Plan (02/14/2020 10:14 AM CDT): She has started to take a calcium and vitamin-D supplement which should mitigate some of the mild osteopenia diagnosed recently. Family hx of colon cancer 05/12/2019 Overview (05/12/2019): Added automatically from request for surgery [id number] Chronic sphenoidal sinusitis 10/10/2018 Overview (02/13/2020): Resolved after surgery per ENT Assessment & Plan (10/09/2022 10:29 AM CANDY MIXER): She has chronic, probably non-allergic, sinus congestion and drainage. This improved for a while after sphenoid sinus surgery about 4 years ago, but symptoms have recurred. She did not respond to a 3 month trial of oral antihistamines last year. We will have her try Astelin or Flonase which are available OTC (starting with Astelin). Assessment & Plan (10/28/2018 8:31 AM CANDY MIXER): Patient has been diagnosed with a chronic fungal sphenoid sinusitis. Patient is status post image guided endoscopic left sphenoidotomy with evacuation of sphenoid contents. Preoperative symptoms have resolved. Patient is no longer experiencing a left-sided headache. No further treatment is indicated at this time. Patient can follow back up as needed. Assessment & Plan (10/10/2018 10:19 AM CANDY MIXER): Patient has a completely opacified left sphenoid [...] hypertension Assessment & Plan (08/07/2024 4:49 PM CANDY MIXER): Chronic, present for more than five years, [...] 166/71 Assessment & Plan (11/01/2023 11:57 AM CANDY MIXER): Systolic blood pressure in the office is [...] day. Assessment & Plan (10/09/2022 10:31 AM CANDY MIXER): Blood pressure is in a good range on current therapy (Coreg 12.5 mg twice a day). She denies chest pain or pressure. Labs are stable. Continue same. Lab Results Component Value Date GLUCOSE 129 (H) 09/06/2022 CALCIUM 9.5 09/06/2022 SODIUM 140 09/06/2022 POTASSIUM 4.6 09/06/2022 CO2 25 09/06/2022 CHLORIDE 107 09/06/2022 BUNSER 22 09/06/2022 CREATININE 0.77 09/06/2022 Assessment & Plan (10/04/2021 2:54 PM CANDY MIXER): Systolic blood pressure is mildly elevated today. [...] 02/13/2021 Assessment & Plan (08/21/2020 12:53 PM CANDY MIXER): Blood pressure is in a good range [...] months. Assessment & Plan (11/26/2018 10:43 AM CANDY MIXER): Blood pressure remains mildly elevated. She did [...] months. Assessment & Plan (11/24/2017 9:50 AM CANDY MIXER): Blood pressure is improved but still somewhat borderline. If it remains elevated at her next visit, we will probably want to add a medication or increase the dose of carvedilol. Carpal tunnel syndrome 07/22/2016 Overview (01/04/2017): Carpal tunnel syndrome Polyp of colon 02/13/2016 Overview (02/13/2020): Tubular adenoma, transverse colon, removed, Dr. Prabhakar, [facility], 11/17/2019. Type 2 diabetes mellitus without complication Overview (01/03/2017): Type 2 DM Assessment & Plan (08/07/2024 4:51 PM CANDY MIXER): Chronic, uncontrolled, hemoglobin A1c currently not at [...] 10/01/2023 Assessment & Plan (10/15/2023 10:57 AM CANDY MIXER): She takes metformin. Diabetes control is adequate. [...] 09/06/2022 Assessment & Plan (10/09/2022 10:33 AM CANDY MIXER): Blood sugar is well-controlled on current Rx. [...] visit. Assessment & Plan (10/07/2021 5:21 AM CANDY MIXER): Blood sugars generally run 100-120 mg/dL in [...] 02/13/2021 Assessment & Plan (08/27/2020 3:34 PM CANDY MIXER): Blood sugars have been in a good [...] labs. Assessment & Plan (12/01/2018 2:35 PM CANDY MIXER): Hemoglobin A1c has a bit higher at [...] therapy. Assessment & Plan (11/24/2017 9:49 AM CANDY MIXER): Hemoglobin A1c on recent labs was 6.5 which represents pretty good control. Sometimes her morning blood sugars are 150-160, other times as low as 89. She will continue to work on her diet and continue medications as prescribed. Follow-up in six months. Family history of ischemic h eart disease and other diseases of the circulatory system 09/12/2011 Overview (08/21/2020): Per [facility] records. Neuropathy 02/27/2006 Overview (01/03/2017): Neuropathy Assessment & Plan (11/26/2018 10:44 AM CANDY MIXER): She has a peripheral neuropathy in her [...] fluctuates. Assessment & Plan (08/02/2024 10:03 AM CANDY MIXER): Chronic, uncontrolled but stable. Weight has not really changed. We encouraged attention to her diet and hopefully some weight loss. Assessment & Plan (10/15/2023 10:54 AM CANDY MIXER): We encouraged attention to her diet, and hopefully a little bit of weight loss. Assessment & Plan (04/09/2023 10:11 AM CDT): Her weight is stable. We encouraged attention to her diet and hopefully a little bit of weight loss. Assessment & Plan (10/09/2022 10:32 AM CANDY MIXER): Her weight is stable. We encouraged attention to her diet and some weight loss. Assessment & Plan (10/04/2021 2:52 PM CANDY MIXER): Her weight is roughly unchanged. I encouraged attention to her diet, and hopefully some weight loss. Assessment & Plan (02/21/2021 2:03 PM CDT): Her weight is slightly higher. I encouraged attention to her diet and some weight loss. Assessment & Plan (08/21/2020 12:54 PM CANDY MIXER): Her weight is stable, or perhaps up [...] reducing. Assessment & Plan (11/24/2017 9:51 AM CANDY MIXER): Weight is relatively stable. She seems to [...] Medicine. Assessment & Plan (08/27/2020 3:29 PM CANDY MIXER): She has had a cough for 20 [...] 15 years. She has been to allergists, smeller, and has had trials of various medications [...] workup. Assessment & Plan (11/24/2017 9:54 AM CANDY MIXER): She continues to have a chronic cough. [...] weeks. Assessment & Plan (10/04/2021 2:53 PM CANDY MIXER): She had a moderately difficult course with [...] or sooner if needed. COVID-19 virus detected 06/15/202109/2020 Assessment & Plan (06/15/2021 3:25 PM CDT): Rapid covid test= positive She has not been vaccinated. Symptoms started last about 8 days ago with nausea, cough and bodyaches. Pt was given state of [place] guidelines for quarantine. I advised that she [...] (02/13/2020): Added automatically from request for surgery [id number], Tubular adenoma, transverse colon, removed, ADAM Alonso. Hx of colonic polyp 05/12/2019 02/13/20 Overview (02/13/2020): Added automatically from request for surgery [id number], Tubular adenoma, transverse colon, removed, AD[facility] Alonso, 11/07/19, Dr. Prabhakar. Elevated blood pressure reading 09/26/2018 11/26/2018 Overview (10/05/2018): Moderate BP elevation at home in association with a bad headache. Assessment & Plan (10/07/2018 10:39 AM CANDY MIXER): Blood pressure is again elevated but better than yesterday, corresponding to better control of her headache pain. If it remains elevated at her follow-up, we will definitely want to add something to her regimen or increase the dose of carvedilol. Acute non-recurrent sphenoidal sinusitis 08/05/2018 10/28/2018 Assessment & Plan (10/07/2018 10:37 AM CANDY MIXER): Sinus CT shows the left sphenoid sinus [...] weeks. Assessment & Plan (10/05/2018 2:42 PM CANDY MIXER): She started to have a left-sided temporal [...] drainage. Assessment & Plan (10/26/2018 8:34 AM CANDY MIXER): We put her on Tegretol thinking that [...] time. Assessment & Plan (10/05/2018 2:45 PM CANDY MIXER): As noted elsewhere, she has had a [...] 03/02/2025 Assessment & Plan (10/15/2023 10:57 AM CANDY MIXER): About five years ago, we evaluated her [...] contrast. Assessment & Plan (11/26/2018 10:45 AM CANDY MIXER): The right flank pain for which she [...] [facility]. Assessment & Plan (11/24/2017 10:24 AM CANDY MIXER): For the last couple of months, she [...] in 2012 shows a possible old anterior TX. 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 Assessment & Plan (11/24/2017 9:51 AM CANDY MIXER): She continues to have problems with heartburn. The trial of ranitidine did not help. We will put her on some omeprazole and have her take it for at least two months to see if that helps. Encounters Date Type Department Care Team Description 03/02/2025 9:30 AM CDT Office Visit [facility] [place] [facility] [address] [place] [address] Bessy Gonzalez NP Type 2 diabetes mellitus without complication, without long-term current use of insulin (HCC) (Primary Dx); Hypertension associated with type 2 diabetes mellitus (HCC); Vitamin D deficiency; Benign hypertension; Diabetes mellitus without complication (HCC); Colon cancer screening 03/02/2025 Telephone [facility] [place] [address] [place] [address] [place] Dillard from Last 3 Months Immunizations Immunization Administration Dates Next Due Hep A, Adult 11/12/2004,08/19/2003 Hep B Vaccine 05/17/2005,12/10/2004,11/12/2004 Influenza, Quadrivalent, Hig h Dose, Preservative Free, Intrr 08/21/2020 Influenza, Quadrivalent, Spl it, Preservative Free, Intramuscular 10/04/2021 Influenza, Unspecified 08/02/2024(Deferr ed: Patient Refused),07/21/2023(Deferred: Patient Refused) Pneumococcal Conjugate PCV 13 05/26/2017 Pneumococcal Polysaccharide PPV23 11/26/2018 Tdap 05/23/2015,07/31/2009 Surgical History Surgery Date Site/Laterality Comments CHOLECYSTECTOMY LAP CHOLECYSTECTOMY CERVICAL DISCECTOMY 09/29/2001 - 09/28/2002 Complicated by vocal cord paralysis, later repaired. DIABETES EYE EXAM 09/29/2014 - 09/28/2015 Diabetic eye exam: Ophthalmology TOTAL ABDOMINAL HYSTERECTOMY W/ BILATERAL SALPINGOOPHORECTOMY MENORRHAGIA: DYLAN/BSO TONSILLECTOMY AND ADENOIDECTOMY Details lacking. ULNAR TUNNEL RELEASE Left Details lacking. DE QUERVAIN'S RELEASE Details lacking. MAMMOGRAPHY 10/22/2017 Normal, [facility] COLONOSCOPY 02/13/2016 Tubular and serrated adenomas, Dr. Prabhakar, [facility]. DIABETES EYE EXAM 05/13/2018 Normal, [facility]. TUBAL LIGATION CARPAL TUNNEL RELEASE Bilateral Details lacking. THYROIDECTOMY Details lacking. MAMMOGRAPHY 05/10/2019 Negative, [facility]. LARYNX SURGERY VOCAL CORD REPAIR, details lacking. ARTHROCENTESIS OF TROCHANTER IC BURSA 12/24/2017 Right Steroid injection, Dr. Sykes. COLONOSCOPY 11/17/2019 Tubular adenoma, transverse colon, removed, Dr. Prabhakar, [facility]. FOOT SURGERY 09/06/2016 Left COTTON OSTEOTOMY LEFT MEDIAL CUNEIFORM, PROXIMAL INTERPHALANGEAL JOINT FUSION LEFT SECOND DIGIT, LAURENCE OSTEOTOMY LEFT SECOND METATARSAL, Dr. Romano, [facility]. MAMMOGRAPHY 09/01/2020 Bilateral Negative, [facility]. DIABETES EYE EXAM 08/29/2020 [facility] in [place]. DEXA SCAN 08/10/2021 Low bone density at femoral neck, [facility]. T-score is -1.4. DIABETES EYE EXAM 02/06/2022 Cataracts and floaters, [facility] [place], [place] SINUS SURGERY 10/13/2018 Left Left image guided endoscopic sphenoidotomy with evacuation of sphenoid contents, Dr. Cantu. MAMMOGRAPHY 10/16/2022 Bilateral Negative, [facility]. DEXA SCAN 11/10/2023 N/A Femoral neck T-score is -1.6, [facility]. MAMMOGRAPHY 04/08/2024 Bilateral Negative, [facility]. Medical History Medical History Date Comments Diabetes mellitus (HCC) Diabetes mellitus; Comments: HEBERT 05/11/2015 - Closed left ankle fracture 08/18/2015 Fx. l eft ankle 08-18-15, [facility] walker. History of menorrhagia 2004 [place] Neuropathy Details lacking. Trigger finger, left little finger 11-12-16 Left 5th trigger finger release.; Comments: MASTER 11/26/2016 - Benign hypertension 10/22/2016 Benign hyper tension Type 2 diabetes mellitus wit hout complication (HCC) 03/24/2015 Type 2 DM Non morbid obesity 02/27/2006 Obesity Sinusitis History of fracture of nose Cough Cataract Elevated blood pressure reading 09/26/2018 Moderate BP elevation at home in association with a bad headache. 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 Plantar plate injury 03/15/2016 Synovitis of left foot 01/14/2017 Chickenpox 1960 GERD (gastroesophageal reflu x disease) Hx of colonic polyp 05/12/2019 Added automa tically from request for surgery [id number], Tubular adenoma, transverse colon, removed, Dr. Prabhakar, [facility], 11/17/19, Dr. Prabhakar. Screen for colon cancer 10/05/2019 Added au tomatically from request for surgery [id number], Tubular adenoma, transverse colon, removed, Dr. Prabhakar, [facility], 11/17/19. COVID-19 virus detected 06/15/2021 Positive D dimer 06/17/2021 Likely due to C ovid pneumonia. Acute respiratory failure wi th hypoxia (HCC) 06/18/2021 Due to Covid pneumonia. Requ ired oxygen for several weeks. Hyponatremia 06/17/2021 During acute ill ness with Covid. Wheezing 06/18/2021 Post COVID. Rx i nhaler with improvement. Pneumonia due to COVID-19 virus 06/16/2021 Post recovery oxygen requirement for several weeks. Benign hypertension 10/22/2016 Similar diag nosis on problem list. Obesity (BMI 30.0-34.9) 02/27/2006 Obesity Family History Medical History Relation Name Comments Diabetes Brother 1 Diabetes mellit us; Hypertension Brother 2 Hypertension; Colon cancer Father Cancer, colon; Esophageal cancer Father Cancer, es ophageal; Colon cancer Maternal Grandfather Breast cancer Maternal Grandmother Cancer , breast; Diabetes Mother Diabetes mellit us; Other Mother HEART, LIVER DZ ; Breast cancer Mother's Sister Cancer, cristina ast; Other Other 1 Family history of fibromyalgia - sister; Other Other 2 Family history of osteoarthritis - sister; Coronary artery disease Sister 1 Dennys nary artery disease, premature; Diabetes Sister 2 Diabetes mellit us; Hypertension Sister 3 Hypertension; Relation Name Status Comments Brother 1 Brother 2 Father Maternal Grandfather Maternal Grandmother Mother Mother's Sister Other 1 Other 2 Sister 1 Sister 2 Sister 3 Social History Tobacco Use Types Packs/Day Years [...] on file Legal Sex Female 2:14 AM CANDY MIXER Gender Identity Not on file Sexual Orientation Not on file Obstetrics History Para Term AB IAB SAB Ectopic Multiple Livin g Live Births 4 4 4 Date Outcome GA Total Labor Labor/2nd/3rd Weight Sex Type Anes PTL Shirin A1 A5 Name Clin Term Term Term Term Last Filed Vital Signs Vital Sign Reading [...] st Contact Info) Description 11/11/2025 10:30 AM CANDY MIXER Hospital Encounter [address] [address] Jm Prabhakar MD [address] [place] [address] DR MCALLISTER [address] [place] [address] 11/11/2025 10:30 AM CANDY MIXER - 11/11/2025 11:00 AM CANDY MIXER Surgery [address] [address] Jm Prabhakar MD [address] [place] [address] DR MCALLISTER [address] [place] [address] COLONOSCOPY Scheduled Procedures Name Priority Associated Diagnoses Date/Ti me COLONOSCOPY History of colonic polyps Family history of colon cancer 11/11/2025 10:30 AM CANDY MIXER Health Maintenance Due Date Last Done Comments Zoster Vaccine (1 of 2) 12/08/2001 Colon Cancer Screening-Colonoscopy 11/17/2024 11/17/2019, 02/13/2016, 02/13/2016 Breast Cancer Screening-Mammogram 04/08/2025 04/08/2024, 10/16/2022, 10/09/2021, Additional history exists DTaP/Tdap/Td Vaccine (3 - Td or Tdap) 05/23/2025 05/23/2015, 07/31/2009 Influenza Vaccine (#1) 2025 10/04/2021, 2019 Hemoglobin A1C 07/13/2025 01/11/2025, 02/28, 10/01/2023, Additional history exists Foot Exam 08/02/2025 08/02/2024, 09/29, 04/09/2023, Additional history exists Osteoporosis Screening-Bone Density Scan 11/10/2025 11/10/2023, 08/10/2021, 06/21/2019 Dilated Eye Exam 01/06/2026 01/06/2025, 07/2022, 08/29/2020, Additional history exists Albumin Creatinine Ratio, Urine 01/11/2026 01/11/2025, 10/01/2023, 10/10/2022, Additional history exists Lipid Panel 01/11/2026 01/11/2025, 0 11/2023, 09/06/2022, Additional history exists eGFR 01/11/2026 01/11/2025, 0 11/2023, 09/06/2022, Additional history exists Depression Screening 03/02/2026 03/02/2025, 10/15/2023, 10/09/2022, Additional history exists Fall Risk Assessment 03/02/2026 03/02/2025, 10/15/2023, 10/09/2022, Additional history exists Well Visit 65+ 03/02/2026 03/02/2025, 0 12/2024, 10/15/2023, Additional history exists Hepatitis B Screening Completed 05/17/2005 , 12/10/2004, 11/12/2004 Pneumococcal vaccine 65+ Completed 11/26/2018, 04/30 Colon Cancer Screening-CT Colonography Discontinued 11/17/2019, 02/13/2016, 02/13/2016 Colon Cancer Screening-DNA Stool Discontinued 11/17/2019, 02/13/2016, 02/13/2016 Colon Cancer Screening-FIT Discontinued 11/17, 02/13/2016, 02/13/2016 Colon Cancer Screening-Sigmoidoscopy Discontinued 11/17/2019, 02/13/2016, 02/13/2016 Hepatitis C Screening Completed 12/06/2019 Medical Devices Implanted Type Area Animal Damage Control Agent Device Identifier Shelf Expiration Date Model / [...] Read Routine (OP Routine) 11/10/2023 2:29 PM CANDY MIXER Menopause HEPATITIS C ANTIBODY Routine 12/06/2019 8:30 AM CDT COLONOSCOPY 11/17/2019 8:55 AM CANDY MIXER from Last 3 Months or Most Recently [...] FASTING:YES FASTING: YES Keyonna Delatorre MD LAB URINE ORDERABLES Final Re sult Performing Organization Address [facility] de Phone Number [facility] [address] [place] [address] * (ABNORMAL) Hemoglobin A1c (01/11/2025 8:37 AM CDT) Hgb A1C 7.5(H) <5.7 % [facility] Comment: For someone without known diabetes, [...] MD LAB BLOOD ORDERABLES Final Re sult Performing Organization Address [facility] de Phone Number [employer] [facility] [address] [place] [address] * Lipid panel (01/11/2025 8:37 AM CDT) Cholesterol 192 <200 mg/dL [facility] [...] equation in the estimation of LDL-C. Brendan SS et al. JOHN. 2013;310(18): 0393-8196 (http://education.Commun.it/faq/SGM738) Chol/HDL ratio 2.4 <5.0 (calc) [facility] [...] BLOOD ORDERABLES Final Re sult [facility] [address] [place] [address] * (ABNORMAL) Comprehensive metabolic panel (01/11/2025 8:37 AM CDT) Pathologist [facility] Glucose 147(H) 65 - 99 mg/dL [facility] [...] BLOOD ORDERABLES Final Re sult [facility] [address] [id number] * DIABETES EYE EXAM (01/06/2025 10:08 AM CDT) SCRIBED DIABETIC DILATED EYE EXAM Normal Comment:No diabetic retinopa thy/ patient refused dilated fundus exam Historical Provider [facility] Final Result * Screening Mammogram Bilateral W [...] There has been no suspicious interval change. Keyonna Delatorre MD IMG MAMMO PROCEDURES Final Re sult * Dexa Axial Skeleton Bone Density 1 or 2 Site (11/10/2023 2:29 PM CANDY MIXER) Anatomical Region Laterality Modality Body N/A Other 11/10/2023 8:11 PM CANDY MIXER Narrative 11/10/2023 8:12 PM CANDY MIXER EXAM DESCRIPTION: DEXA AXIAL SKELETON BONE DENSITY 1 OR MORE SITES REASON FOR STUDY: 72 y/o year old F with given history of: menopause Animal Damage Control Agent/Model: [employer] (S/N [id number]) CLINICAL INFORMATION: Current height: 62 inches Maximum [...] Stiven Galeano M.D. MF: [email or web address] Report ID: [id number] Reading Location: [id number] Procedure Note Stiven Galeano MD - 11/10/2023 EXAM DESCRIPTION: DEXA AXIAL SKELETON BONE DENSITY 1 OR MORE SITES REASON FOR STUDY: 72 y/o year old F with given history of: menopause Animal Damage Control Agent/Model: [employer] (S/N [id number]) CLINICAL INFORMATION: Current height: 62 inches Maximum [...] Stiven Galeano M.D. MF: KASIE Report ID: [id number] Reading Location: [id number] Keyonna Delatorre MD IMG DXA PROCEDURES Final Resu lt * Hepatitis C antibody (12/06/2019 8:30 AM CDT) Pathologist [facility] Hep C Ab NON-REACT JESUS MANUEL NON-REACT JESUS MANUEL [facility] [place] SIGNAL TO CUT-OFF 0.01 <1.00 [facility] [place] Comment: HCV antibody was non-reactive. There is no laboratory evidence of HCV infection. In most cases, no further action is required. However, if recent HCV exposure is suspected, a test for HCV RNA (test code 70361) is suggested. For additional information please refer to http://education.FanFound/faq/NGK91b7 (This link is being provided for informational/ educational purposes only.) 12/06/2019 8:30 AM CDT 12/07/2019 8:03 AM CDT Narrative [facility] - 12/07/2019 1:34 PM CDT FASTING:YES FASTING: YES Resulting Agency Comment Performing Organization Information: Site ID: [id number] Name: [facility] Address: [address] [place], [place] [address]S[place] [id number] Director: Jeff Duran D.O., MPH Keyonna Delatorre MD LAB MICROBIOLOGY - GENERAL OR DERABLES Final Result [facility] To * COLONOSCOPY (11/17/2019 8:55 AM CANDY MIXER) Anatomical Region Laterality Modality Other Narrative Procedure Note Jm Prabhakar MD - 11/17/2019 8:55 AM CST [facility] Patient Name: Allyson Reyes Procedure Date: 11/17/2019 8:55 AM Date of : 1950 Admit Type: Outpatient Age: 68 Gender: Female Attending MD: Jm Prabhakar M.D. Room: [facility] ENDOSCOPY ROOM 1 Note Status: Finalized Patient [...] passed under direct vision.The Pediatric Colonoscope PCF-H190L [id number] was introduced through the anus and advanced [...] 8:55 AM Procedure Code(s): --- Professional --- 10153, Colonoscopy, flexible; with biopsy, single or multiple Diagnosis Code(s): --- Professional --- K64.8, Other hemorrhoids D12.0, Benign neoplasm of cecum D12.3, Benign neoplasm of transverse colon (hepatic flexure orsplenic flexure) K57.30, Diverticulosis of large intestine without perforation orabscess without bleeding CPT copyright 2017 [employer]. All rights reserved. The codes documented in this report are preliminary and upon electromyographic technician reviewmay be revised to meet current compliance requirements. Recognized by the [employer] for promoting quality in endoscopy Jm Prabhakar MD ENDOSCOPY PROCEDURES Final Result from Last 3 Months or Most Recently Relevant to Health Maintenance Insurance MEDICARE MEDICARE MEDICARE MEDICARE Advance Directives For more information, please contact: [phone] Documents on File Type Date Recorded Patient Motor Vehicle Compliance Analyst Expl anation ADVANCE DIRECTIVE 03/02/2025 POLST - YS ORDER FOR PT PREFERENCES * Full Code (Latest Code Status on File) Date Activated Date Inactivated Comments 06/16/2021 9:01 PM 06/23/2021 11:15 PM * Full Code Date Activated Date Inactivated Comments 11/17/2019 8:08 AM 11/17/2019 2:50 PM * Full Code Date Activated Date Inactivated Comments 11/17/2019 8:08 AM 11/17/2019 8:08 AM Care Teams Traffic Controller Cable Relationship Specialty Start Date End Date Keyonna Delatorre MD [address] [place] [id number] PCP - General 12/27/16 Nguyen Segovia OD [address] [place] [address] Consulting Physician Optometry 11/24/17 Marly Koch DO [address] [place] [address] Consulting Physician Optometry 06/11/18 Ree Carrero OD [address] [place] [address] Consulting Physician Optometry 02/14/22
--- OUTSIDE RECORDS SUMMARY | 2025-04-25 14:35 | XMS_ITS | Clinical Summary ---
Author Organization [facility] Address [address] [place] [address] Care Team Providers Care Conduit Bender Name Role Phone Jina Koch MD Primary Care Provider [phone] Source Comments [facility],non-[facility] and Associated Physician Practices is amultiple site organization consisting of ambulatory clinics and hospital sitesin [place], [place]. This disclosure is being madepursuant to the Care Everywhere program and may not contain all information available regarding this patient. Last updated 18.[facility] Allergies Active Allergy Reactions Criticality Noted Date Comments Hydrocodone-Acetaminophen 11/18/2011 Medications * Be aware that medications may not be up to date on this document. Alwaysverify current medications with the patient. No known medications Family History Medical History Relation Name Comments Diabetes Brother 5 Hypertension Brother 6 Cancer Father Cancer Maternal Grandfather Cancer Maternal Grandmother Diabetes Maternal Grandmother CAD (Coronary Artery Disease) Mother Heart Failure Mother Hypertension Mother Stroke Mother CAD (Coronary Artery Disease) Sister 3 Diabetes Sister 4 Relation Name Status Comments Brother 1 Alive Brother 2 Alive Brother 3 Alive Brother 4 Alive Brother 5 Brother 6 Father Maternal Grandfather Maternal Grandmother Mother Sister 1 Alive Sister 2 Alive Sister 3 Sister 4 Social History Tobacco Use Types Packs/Day Years Used Date Smoking Tobacco: Never Alcohol Use Standard Drinks/Week Comments Yes 0 (1 standard drink = 0.6 oz pur e alcohol) occasion Comments Unknown Sex and Gender Information Value Date Recorded Sex Assigned at Not on file Legal Sex Female 1:11 PM MAGNETIC PROSPECTING 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 Gender Identity Not on file Sexual Orientation Not on file Last Filed Vital Signs Vital Sign Reading Time Taken Comments Blood Pressure 124/72 11/26/2011 11:40 AM MAGNETIC PROSPECTING OPERATOR Pulse 86 11/26/2011 11:40 AM MAGNETIC PROSPECTING OPERATOR Temperature 36.9 C (98.4 F) 11/26/2011 8:19 AM MAGNETIC PROSPECTING OPERATOR Respiratory Rate 16 11/26/2011 11:40 AM MAGNETIC PROSPECTING OPERATOR Oxygen Saturation 96% 11/26/2011 11:40 AM MAGNETIC PROSPECTING OPERATOR Inhaled Oxygen Concentration - - Weight 80.7 kg (178 lb) 11/26/2011 8:19 AM MAGNETIC PROSPECTING OPERATOR Height 157.5 cm (5' 2) 11/26/2011 8:19 AM MAGNETIC PROSPECTING OPERATOR Body Mass Index 32.56 11/26/2011 8:19 AM MAGNETIC PROSPECTING OPERATOR Plan of Treatment Health Maintenance Due Date Last Done Comments BONE DENSITY TESTING 1950 COLOGUARD (AGES 45-75) - COL ON CA SCREENING 1950 COLON MONITORING 1950 COLONOSCOPY - COLON CA SCREENING 1950 CT COLONOGRAPHY - COLON CA SCREENING 1950 Colorectal Cancer Screening 1950 FIT - COLON CA SCREENING 1950 FLEX SIG - COLON CA SCREENING 1950 LIPID TESTING 1950 MAMMOGRAM 1950 HEPATITIS C SCREENING 12/04/1969 DTAP/TDAP/TD VACCINES (1 - Tdap) 12/08/1970 PNEUMOCOCCAL VACCINE 50+ (1 of 1 - PCV) 12/08/2001 ZOSTER VACCINE (1 of 2) 12/08/2001 COVID-19 VACCINE (1 - 2023-2 5 season) 2024 DEPRESSION SCREENING 09/29/2024 INFLUENZA VACCINE (#1) 2025 Respiratory Syncytial Virus (RSV) Vaccine Pt: or over 60 yrs (1 - 1-dose 75+ series) 12/08/2026 HEPATITIS B VACCINE Aged Out No longe r eligible based on patient's age to complete this topic HIB VACCINE Aged Out No longer eligi ble based on patient's age to complete this topic HPV VACCINE Aged Out No longer eligi ble based on patient's age to complete this topic MENINGOCOCCAL (Group B) VACC INE SHARED DECISION-MAKING Aged Out No longer eligibl e based on patient's age to complete this topic MENINGOCOCCAL GROUPS A/C/Y/W VACCINE Aged Out No longer eligible b ased on patient's age to complete this topic Insurance MEDICARE Care Teams Conduit Bender Relationship Specialty Start Date End Date Jina Koch MD PCP - General Internal Medicine 11/25/11
--- OUTSIDE RECORDS SUMMARY | 2025-04-25 14:35 | XMS_ITS | Continuity of Care Document ---
Author Organization [facility] Address [address] [place] [address] Phone Care Team Providers Care Brake Machine Operator Name Role Phone Administrative, Provider Unavailable Unavail able Procedures Procedure Date Medical Record Copy Medical Record Copy Per Page Office/outpatient visit,est, mod 2006 Supplemental Report Office consultation, moderate-high Inject tndn sheath/lgmnt/gangl cyst Depo Medrol Methylprednisolone 40 MG inj X-ray exam of wrist, complete 7 Supplemental Report Advance Directives Directive Yes / No Effective Date File Name No Information Encounters Encounter Description Practice Location Reason(s) For Visit Diagnoses Date Provider Providers Copied on Encounter [facility], [address] [place] [address], [id number], [place] tel:[phone] [facility] No Information 0200 7 Administrative Provider. [address] [place] [address], [place], [place], [id number], [place]. tel:[phone] Office/outpa tient visit,est, mod [facility], [address] [place] [address], [id number], [place] tel:[phone] [facility] No Information 8200 7 Anthony Aguilar. [address] [place] [address], [place], [place], [id number], [place]. tel:[phone] Office consultation , moderate-hig h [facility], [address], [place], [place], [id number], [place] tel:[phone] [facility] No Information 7 Anthony Aguilar. [address], [place], [place], [id number], [place]. tel:[phone] Family History Family Member Type Diagnosis Age At Onset No Information Payers Payer name Insurance type Covered alliance party ID Authoriza tion(s) No Information Social History Type Description Quantity Date Captured Comments Sex Female Smoking Status No Information Chief Complaint And Reason For Visit No Information Reason For Referral Reason For Referral No Information History Of Present Illness Encounter Date Complaint History Of Prese nt Illness No Information Functional Status Date Functional Assessmen t No Information Instructions Date Instruction Additional Infor mation No Information Assessments Type Assessment Date No Information Patient Care Teams Name Effective Dates (start - stop) Status Members No Information
--- NOTE | 2025-04-25 14:37 | ED.WOUNDLAC ---
HPI - Wound/Laceration General Chief Complaint: Wound/Laceration Stated Complaint: wound right hand History of Present Illness HPI narrative: pt was turnign brass rae on old wind up clock and rae shot out and struck her in the hand causing a laceration. Pt unsure of last tetanus shot. Pt has no swelling and no bony tenderness and good rom of fingers and hand. Related Data Allergies Allergy/AdvReac Type Severity Reaction Status Date / Time No Known Allergies Allergy Mild Unverified 03/19/04 12:56 Review of Systems Review of Systems: All systems reviewed & are unremarkable except as noted in HPI and below Exam Const: General: cooperative, healthy appearing and comfortable Nutritional Appearance: average body habitus Orientation/consciousness: patient oriented x3 Limitations: no limitations HENMT: Head: normal to inspection Resp: Effort & Inspection: normal respiratory effort Auscultation: clear to auscultation bilaterally Cardio: Rate: regular rate Rhythm: regular rhythm Skin: Trauma: laceration (two side by side us haped 3 cm lacerations to 2nd mcp joint right hand. ) Neuro: General: patient oriented x3 Extrem: Right upper extremity: full ROM and Extremity exam: right hand; no edema Psych: Appearance: grossly normal Mental Status: mental status grossly normal Course Vital Signs Vital signs: Vital Signs Temperature 99.1 F 04/25/25 14:32 Pulse Rate 75 04/25/25 14:32 Respiratory Rate 16 04/25/25 14:32 Blood Pressure 175/64 H 04/25/25 14:32 Pulse Oximetry 95 04/25/25 14:32 Oxygen Delivery Room Air 04/25/25 14:32 Temperature 99.1 F 04/25/25 14:32 Pulse Rate 75 04/25/25 14:32 Respiratory Rate 16 04/25/25 14:32 Blood Pressure 175/64 H 04/25/25 14:32 Pulse Oximetry 95 04/25/25 14:32 Oxygen Delivery Room Air 04/25/25 14:32 Procedures Laceration Laceration 1: Site: hand Side (If applicable): right Size (cm): 3 Description: flap Depth: simple, single layer Local Anesthetic: lidocaine 1% Amount of anesthesia used (mL): 3 ====== Skin Level ====== Skin layer closed with: nylon Size (cm): 5-0 Number of sutures: 4 Technique: simple, interrupted ====== Subcutaneous Layer ====== ====== Muscle Layer ====== ====== Tendon Layer ====== Laceration 2: Site: hand Side (If applicable): right Size (cm): 3 Description: flap Depth: simple, single layer Local Anesthetic: lidocaine 1% Amount of anesthesia used (mL): 2 ====== Skin Level ====== Skin layer closed with: nylon Size (cm): 5-0 Number of sutures: 3 Technique: simple, interrupted ====== Subcutaneous Layer ====== ====== Muscle Layer ====== ====== Tendon Layer ====== MDM - Wound/Laceration MDM Narrative Medical decision making narrative: Pt has laceration to right hand. will give tetanus shot and suture as best we can. Discharge Plan Discharge Clinical Impression: Laceration Patient Disposition: Home Condition: Improved Instructions: Antibiotic Form, Care For Your Stitches (ED), Laceration (ED) Additional Instructions: suture removal 7-10 days Patient Language: Bhutanese Follow-up/Referrals: Kevin Cloud MD [Physician] - UNKNOWN,DOCTOR [Non-Staff] -
[2025-04-25] MEDS: LIDOCAINE 1% LOCAL INJ 10 ML VIAL INFILTRATE (14:47)
[2025-04-25] MEDS: TETANUS,DIPHTHERIA,AC PERTUSSIS ADULT 0.5 ML (ADACEL) IM (14:47)
--- OUTSIDE RECORDS SUMMARY | 2025-04-25 14:58 | XMS_ITS | Clinical Summary ---
Author Organization [facility] Address [address] [place] [address] Care Team Providers Care Skin Piler Name Role Phone Isac Fregoso MD Primary Care Provider [phone] Allergies Active Allergy Reactions Criticality Noted Date [...] on file Legal Sex Female 9:33 AM FLASK FITTER Gender Identity Not on file Sexual Orientation Not on file Last Filed Vital Signs Vital Sign Reading Time Taken Comments Blood Pressure - - Pulse - - Temperature - - Respiratory Rate - - Oxygen Saturation - - Inhaled Oxygen Concentration - - Weight 72.6 kg (160 lb) 10/02/2023 9:48 AM FLASK FITTER Height 157.5 cm (5' 2) 10/02/2023 9:48 AM FLASK FITTER Body Mass Index 29.26 10/02/2023 9:48 AM FLASK FITTER Plan of Treatment Health Maintenance Due Date [...] complete this topic Insurance MEDICARE Care Teams Skin Piler Relationship Specialty Start Date End Date Isac Fregoso MD [address] [place] [phone] PCP - General INFECTIOUS DISEASE 09/03/23
--- OUTSIDE RECORDS SUMMARY | 2025-04-25 14:58 | XMS_ITS | Clinical Summary ---
Author Organization [facility] Address [address] [place] [address] Care Team Providers Care Fur Glazer Name Role Phone Keyonna Delatorre MD Primary Care Provider [phone] Nguyen Segovia OD Unavailable [phone] Marly Koch DO Unavailable [phone] Ree Carrero OD Unavailable + Allergies [...] 2023. Assessment & Plan (08/07/2024 4:46 PM CLINICAL ESTHETICIAN): New problem identified earlier this year. She [...] week Assessment & Plan (10/15/2023 10:52 AM CLINICAL ESTHETICIAN): Ten year cardiovascular risk is about 37%. She does not want to take a cholesterol medicine. She wants to keep working on her diet. We will see her back in six months. Vitamin D deficiency 10/01/2023 Overview (10/10/2023): Mild Assessment & Plan (08/02/2024 10:09 AM CLINICAL ESTHETICIAN): New problem as of earlier this year, unchanged despite taking a calcium plus vitamin D3 supplement. We ordered a high dose vitamin D2 supplement and we will check a follow-up level in several months. Assessment & Plan (11/01/2023 11:58 AM CLINICAL ESTHETICIAN): She takes a supplement. We will check a follow-up level with her next set of labs in six months. Closed fracture of malleolus of left ankle with routine healing 08/28/2023 Overview (10/10/2023): She missed the last step on stairs at home, heard a pop, went to ER at [facility]. Follow-up imaging on 09/03/2023 at [facility] in [place] shows normal healing. >>OVERVIEW FOR CLOSED FRACTURE OF PART OF FIBULA WRITTEN ON 10/10/2023 5:29 AM BY KEYONNA DELATORRE MD Subacute transverse fracture near tip of distal left fibula without remarkable displacement or angulation. Calcaneal spurs. [facility]. Assessment & Plan (08/02/2024 10:05 AM CLINICAL ESTHETICIAN): New problem as of last winter. She [...] decision. Assessment & Plan (10/15/2023 10:52 AM CLINICAL ESTHETICIAN): She took a bad step off of [...] list. Assessment & Plan (10/09/2022 10:40 AM CLINICAL ESTHETICIAN): She has chronic, probably non-allergic, sinus congestion [...] injury. Assessment & Plan (08/27/2020 3:39 PM CLINICAL ESTHETICIAN): Her right shoulder has been bothering her [...] (10/08/2022): Added automatically from request for surgery [id number], Tubular adenoma, transverse colon, removed, Dr. Prabhakar, [facility], 11/17/2019. Low bone density 06/21/2019 Overview [...] -1.6. Assessment & Plan (08/02/2024 10:08 AM CLINICAL ESTHETICIAN): Chronic, present for more than five years with a recent fragility fracture. We recommended treatment with a bisphosphonate, PTH analogue, or osteoclast inhibitor, risks of various medications discussed. She wants to think about the options and let me know. Part of the problem is that she has difficulty affording prescription medications. Assessment & Plan (10/15/2023 10:54 AM CLINICAL ESTHETICIAN): She takes calcium and vitamin-D supplements. She is due for a follow-up bone density which we ordered today. Assessment & Plan (04/09/2023 10:11 AM CDT): She takes calcium and vitamin-D supplements. Continue same. Assessment & Plan (10/09/2022 10:32 AM CLINICAL ESTHETICIAN): She is on calcium and vitamin D supplements. Continue same. Assessment & Plan (10/07/2021 5:21 AM CLINICAL ESTHETICIAN): She takes calcium and vitamin-D. A recent bone density was stable compared to two years ago, normal at the lumbar spine and low bone density in the hip. Continue same. Assessment & Plan (02/21/2021 2:04 PM CDT): She is on a calcium plus vitamin-D supplement. Continue same. Assessment & Plan (08/21/2020 12:53 PM CLINICAL ESTHETICIAN): She takes calcium and vitamin-D supplements. Continue same. Assessment & Plan (02/14/2020 10:14 AM CDT): She has started to take a calcium and vitamin-D supplement which should mitigate some of the mild osteopenia diagnosed recently. Family hx of colon cancer 05/12/2019 Overview (05/12/2019): Added automatically from request for surgery [id number] Chronic sphenoidal sinusitis 10/10/2018 Overview (02/13/2020): Resolved after surgery per ENT Assessment & Plan (10/09/2022 10:29 AM CLINICAL ESTHETICIAN): She has chronic, probably non-allergic, sinus congestion and drainage. This improved for a while after sphenoid sinus surgery about 4 years ago, but symptoms have recurred. She did not respond to a 3 month trial of oral antihistamines last year. We will have her try Astelin or Flonase which are available OTC (starting with Astelin). Assessment & Plan (10/28/2018 8:31 AM CLINICAL ESTHETICIAN): Patient has been diagnosed with a chronic fungal sphenoid sinusitis. Patient is status post image guided endoscopic left sphenoidotomy with evacuation of sphenoid contents. Preoperative symptoms have resolved. Patient is no longer experiencing a left-sided headache. No further treatment is indicated at this time. Patient can follow back up as needed. Assessment & Plan (10/10/2018 10:19 AM CLINICAL ESTHETICIAN): Patient has a completely opacified left sphenoid [...] hypertension Assessment & Plan (08/07/2024 4:49 PM CLINICAL ESTHETICIAN): Chronic, present for more than five years, [...] 166/71 Assessment & Plan (11/01/2023 11:57 AM CLINICAL ESTHETICIAN): Systolic blood pressure in the office is [...] day. Assessment & Plan (10/09/2022 10:31 AM CLINICAL ESTHETICIAN): Blood pressure is in a good range on current therapy (Coreg 12.5 mg twice a day). She denies chest pain or pressure. Labs are stable. Continue same. Lab Results Component Value Date GLUCOSE 129 (H) 09/06/2022 CALCIUM 9.5 09/06/2022 SODIUM 140 09/06/2022 POTASSIUM 4.6 09/06/2022 CO2 25 09/06/2022 CHLORIDE 107 09/06/2022 BUNSER 22 09/06/2022 CREATININE 0.77 09/06/2022 Assessment & Plan (10/04/2021 2:54 PM CLINICAL ESTHETICIAN): Systolic blood pressure is mildly elevated today. [...] 02/13/2021 Assessment & Plan (08/21/2020 12:53 PM CLINICAL ESTHETICIAN): Blood pressure is in a good range [...] months. Assessment & Plan (11/26/2018 10:43 AM CLINICAL ESTHETICIAN): Blood pressure remains mildly elevated. She did [...] months. Assessment & Plan (11/24/2017 9:50 AM CLINICAL ESTHETICIAN): Blood pressure is improved but still somewhat borderline. If it remains elevated at her next visit, we will probably want to add a medication or increase the dose of carvedilol. Carpal tunnel syndrome 07/22/2016 Overview (01/04/2017): Carpal tunnel syndrome Polyp of colon 02/13/2016 Overview (02/13/2020): Tubular adenoma, transverse colon, removed, Dr. Prabhakar, [facility], 11/17/2019. Type 2 diabetes mellitus without complication Overview (01/03/2017): Type 2 DM Assessment & Plan (08/07/2024 4:51 PM CLINICAL ESTHETICIAN): Chronic, uncontrolled, hemoglobin A1c currently not at [...] 10/01/2023 Assessment & Plan (10/15/2023 10:57 AM CLINICAL ESTHETICIAN): She takes metformin. Diabetes control is adequate. [...] 09/06/2022 Assessment & Plan (10/09/2022 10:33 AM CLINICAL ESTHETICIAN): Blood sugar is well-controlled on current Rx. [...] visit. Assessment & Plan (10/07/2021 5:21 AM CLINICAL ESTHETICIAN): Blood sugars generally run 100-120 mg/dL in [...] 02/13/2021 Assessment & Plan (08/27/2020 3:34 PM CLINICAL ESTHETICIAN): Blood sugars have been in a good [...] labs. Assessment & Plan (12/01/2018 2:35 PM CLINICAL ESTHETICIAN): Hemoglobin A1c has a bit higher at [...] therapy. Assessment & Plan (11/24/2017 9:49 AM CLINICAL ESTHETICIAN): Hemoglobin A1c on recent labs was 6.5 which represents pretty good control. Sometimes her morning blood sugars are 150-160, other times as low as 89. She will continue to work on her diet and continue medications as prescribed. Follow-up in six months. Family history of ischemic h eart disease and other diseases of the circulatory system 09/12/2011 Overview (08/21/2020): Per [facility] records. Neuropathy 02/27/2006 Overview (01/03/2017): Neuropathy Assessment & Plan (11/26/2018 10:44 AM CLINICAL ESTHETICIAN): She has a peripheral neuropathy in her [...] fluctuates. Assessment & Plan (08/02/2024 10:03 AM CLINICAL ESTHETICIAN): Chronic, uncontrolled but stable. Weight has not really changed. We encouraged attention to her diet and hopefully some weight loss. Assessment & Plan (10/15/2023 10:54 AM CLINICAL ESTHETICIAN): We encouraged attention to her diet, and hopefully a little bit of weight loss. Assessment & Plan (04/09/2023 10:11 AM CDT): Her weight is stable. We encouraged attention to her diet and hopefully a little bit of weight loss. Assessment & Plan (10/09/2022 10:32 AM CLINICAL ESTHETICIAN): Her weight is stable. We encouraged attention to her diet and some weight loss. Assessment & Plan (10/04/2021 2:52 PM CLINICAL ESTHETICIAN): Her weight is roughly unchanged. I encouraged attention to her diet, and hopefully some weight loss. Assessment & Plan (02/21/2021 2:03 PM CDT): Her weight is slightly higher. I encouraged attention to her diet and some weight loss. Assessment & Plan (08/21/2020 12:54 PM CLINICAL ESTHETICIAN): Her weight is stable, or perhaps up [...] reducing. Assessment & Plan (11/24/2017 9:51 AM CLINICAL ESTHETICIAN): Weight is relatively stable. She seems to [...] Medicine. Assessment & Plan (08/27/2020 3:29 PM CLINICAL ESTHETICIAN): She has had a cough for 20 [...] 15 years. She has been to allergists, gas dispenser, and has had trials of various medications [...] workup. Assessment & Plan (11/24/2017 9:54 AM CLINICAL ESTHETICIAN): She continues to have a chronic cough. [...] weeks. Assessment & Plan (10/04/2021 2:53 PM CLINICAL ESTHETICIAN): She had a moderately difficult course with [...] (02/13/2020): Added automatically from request for surgery [id number], Tubular adenoma, transverse colon, removed, ADAM Alonso. Hx of colonic polyp 05/12/2019 02/13/20 Overview (02/13/2020): Added automatically from request for surgery [id number], Tubular adenoma, transverse colon, removed, [facility] Alonso, 11/07/19, Dr. Prabhakar. Elevated blood pressure reading 09/26/2018 11/26/2018 Overview (10/05/2018): Moderate BP elevation at home in association with a bad headache. Assessment & Plan (10/07/2018 10:39 AM CLINICAL ESTHETICIAN): Blood pressure is again elevated but better than yesterday, corresponding to better control of her headache pain. If it remains elevated at her follow-up, we will definitely want to add something to her regimen or increase the dose of carvedilol. Acute non-recurrent sphenoidal sinusitis 08/05/2018 10/28/2018 Assessment & Plan (10/07/2018 10:37 AM CLINICAL ESTHETICIAN): Sinus CT shows the left sphenoid sinus [...] weeks. Assessment & Plan (10/05/2018 2:42 PM CLINICAL ESTHETICIAN): She started to have a left-sided temporal [...] drainage. Assessment & Plan (10/26/2018 8:34 AM CLINICAL ESTHETICIAN): We put her on Tegretol thinking that [...] time. Assessment & Plan (10/05/2018 2:45 PM CLINICAL ESTHETICIAN): As noted elsewhere, she has had a [...] 03/02/2025 Assessment & Plan (10/15/2023 10:57 AM CLINICAL ESTHETICIAN): About five years ago, we evaluated her [...] contrast. Assessment & Plan (11/26/2018 10:45 AM CLINICAL ESTHETICIAN): The right flank pain for which she [...] [facility]. Assessment & Plan (11/24/2017 10:24 AM CLINICAL ESTHETICIAN): For the last couple of months, she [...] in 2012 shows a possible old anterior [place]. EKG in the office today shows no [...] monitor. Assessment & Plan (11/24/2017 9:51 AM CLINICAL ESTHETICIAN): She continues to have problems with heartburn. The trial of ranitidine did not help. We will put her on some omeprazole and have her take it for at least two months to see if that helps. Encounters Date Type Department Care Team Description 03/02/2025 9:30 AM CDT Office Visit [facility] [address] [place] [address] Bessy Gonzalez NP Type 2 diabetes mellitus without complication, without long-term current use of insulin (HCC) (Primary Dx); Hypertension associated with type 2 diabetes mellitus (HCC); Vitamin D deficiency; Benign hypertension; Diabetes mellitus without complication (HCC); Colon cancer screening 03/02/[address] [facility] [place] [address] [facility] [place] [address] [place] Dillard from Last 3 [...] 02/13/2016 Tubular and serrated adenomas, Dr. Prabhakar, [facility]. DIABETES EYE EXAM 05/13/2018 Normal, [facility]. TUBAL LIGATION CARPAL TUNNEL RELEASE Bilateral Details lacking. THYROIDECTOMY Details lacking. MAMMOGRAPHY 05/10/2019 Negative, [facility] LARYNX SURGERY VOCAL CORD REPAIR, details lacking. ARTHROCENTESIS OF TROCHANTER IC BURSA 12/24/2017 Right Steroid injection, Dr. Sykes. COLONOSCOPY 11/17/2019 Tubular adenoma, transverse colon, removed, Dr. Prabhakar, [facility]. FOOT SURGERY 09/06/2016 Left COTTON OSTEOTOMY LEFT MEDIAL CUNEIFORM, PROXIMAL INTERPHALANGEAL JOINT FUSION LEFT SECOND DIGIT, LAURENCE OSTEOTOMY LEFT SECOND METATARSAL, Dr. Romano, [facility]. MAMMOGRAPHY 09/01/2020 Bilateral Negative, [facility] DIABETES EYE EXAM 08/29/2020 [facility] in [place]. DEXA SCAN 08/10/2021 Low bone density at femoral neck, [facility]. T-score is -1.4. DIABETES EYE EXAM 02/06/2022 Cataracts and floaters, no diabetic retinopathy, [facility], [place], [place] SINUS SURGERY 10/13/2018 Left Left image [...] Added automa tically from request for surgery [id number], Tubular adenoma, transverse colon, removed, Dr. Prabhakar, [facility], 11/17/19, Dr. Prabhakar. Screen for colon cancer 10/05/2019 Added au tomatically from request for surgery [id number], Tubular adenoma, transverse colon, removed, Dr. Prabhakar, [facility], 11/17/19. COVID-19 virus detected 06/15/2021 Positive [...] DZ ; Breast cancer Mother's Sister Cancer, crsitina ast; Other Other 1 Family history of [...] on file Legal Sex Female 2:14 AM CLINICAL ESTHETICIAN Gender Identity Not on file Sexual Orientation [...] st Contact Info) Description 11/11/2025 10:30 AM CLINICAL ESTHETICIAN Hospital Encounter [address] [address] Jm Prabhakar MD [address] [place] [address] DR MCALLISTER [address] [place] [address] 11/11/2025 10:30 AM CLINICAL ESTHETICIAN - 11/11/2025 11:00 AM CLINICAL ESTHETICIAN Surgery [address] [address] Jm Prabhakar MD [address] [place] [address] DR MCALLISTER [address] [place] [address] COLONOSCOPY Scheduled Procedures Name Priority Associated Diagnoses Date/Ti me COLONOSCOPY History of colonic polyps Family history of colon cancer 11/11/2025 10:30 AM CLINICAL ESTHETICIAN Health Maintenance Due Date Last Done Comments [...] Completed 12/06/2019 Medical Devices Implanted Type Area Director Religious Education Device Identifier Shelf Expiration Date Model / [...] Read Routine (OP Routine) 11/10/2023 2:29 PM CLINICAL ESTHETICIAN Menopause HEPATITIS C ANTIBODY Routine 12/06/2019 8:30 AM CDT COLONOSCOPY 11/17/2019 8:55 AM CLINICAL ESTHETICIAN from Last 3 Months or Most Recently [...] ORDERABLES Final Re sult Performing Organization Address [facility] de Phone Number [facility] [address] [place] [address] * (ABNORMAL) Hemoglobin A1c (01/11/2025 8:37 AM CDT) Hgb A1C 7.5(H) <5.7 % [facility] Comment: For someone without known diabetes, [...] ORDERABLES Final Re sult Performing Organization Address [facility] de Phone Number [facility] [address] [place] [address] * Lipid panel (01/11/2025 8:37 AM CDT) [...] of LDL-C. Brendan SS et al. JOHN. 2013;310(53): 8139-1584 (http://education.[employer]/faq/ALN146) Chol/HDL ratio 2.4 <5.0 (calc) [facility] [...] BLOOD ORDERABLES Final Re sult [facility] [address] [place] [address] * (ABNORMAL) Comprehensive metabolic panel (01/11/2025 8:37 AM CDT) Pathologist [facility] Glucose 147(H) 65 - 99 mg/dL [facility] [...] BLOOD ORDERABLES Final Re sult [facility] [address] [place] [id number] * DIABETES EYE EXAM (01/06/2025 10:08 AM CDT) SCRIBED DIABETIC DILATED EYE EXAM Normal Comment:No diabetic retinopa thy/ patient refused dilated fundus exam Historical Provider [facility] Final Result * Screening Mammogram Bilateral [...] 1 or 2 Site (11/10/2023 2:29 PM CLINICAL ESTHETICIAN) Anatomical Region Laterality Modality Body N/A Other 11/10/2023 8:11 PM CLINICAL ESTHETICIAN Narrative 11/10/2023 8:12 PM CLINICAL ESTHETICIAN EXAM DESCRIPTION: DEXA AXIAL SKELETON BONE DENSITY 1 OR MORE SITES REASON FOR STUDY: 72 y/o year old F with given history of: menopause Director Religious Education/Model: RxRevu (S/N [id number]) CLINICAL INFORMATION: Current height: 62 inches Maximum [...] Stiven Galeano M.D. MF: KASIE Report ID: [id number] Reading Location: [id number] Procedure Note Stiven Galeano MD - 11/10/2023 EXAM DESCRIPTION: DEXA AXIAL SKELETON BONE DENSITY 1 OR MORE SITES REASON FOR STUDY: 72 y/o year old F with given history of: menopause Director Religious Education/Model: RxRevu (S/N [id number]) CLINICAL INFORMATION: Current height: 62 inches Maximum [...] Stiven Galeano M.D. MF: KASIE Report ID: [id number] Reading Location: [id number] us Keyonna Delatorre MD IMG DXA PROCEDURES Final Resu lt * Hepatitis C antibody (12/06/2019 8:30 AM CDT) Pathologist [facility] Hep C Ab NON-REACT JESUS MANUEL NON-REACT JESUS MANUEL [facility] [place] SIGNAL TO CUT-OFF 0.01 <1.00 [facility] [place] Comment: HCV antibody was non-reactive. There is no laboratory evidence of HCV infection. In most cases, no further action is required. However, if recent HCV exposure is suspected, a test for HCV RNA (test code 69096) is suggested. For additional information please refer to http://education.Khush/faq/MRE63p7 (This link is being provided for informational/ educational purposes only.) 12/06/2019 8:30 AM CDT 12/07/2019 8:03 AM CDT Narrative [facility] - 12/07/2019 1:34 PM CDT FASTING:YES FASTING: YES Resulting Agency Comment Performing Organization Information: Site ID: [id number] Name: [facility] Address: [address] [place], [place] [address]S[place] [address] Director: Jeff Duran D.O., MPH Keyonna Delatorre MD LAB MICROBIOLOGY - GENERAL OR DERABLES Final Result [facility] To * COLONOSCOPY (11/17/2019 8:55 AM CLINICAL ESTHETICIAN) Anatomical Region Laterality Modality Other Narrative Procedure Note Jm Prabhakar MD - 11/17/2019 8:55 AM [facility] Patient Name: Allyson Reyes Procedure Date: 11/17/2019 8:55 AM Date of : 1950 Admit Type: Outpatient Age: 68 Gender: Female Attending MD: Jm Prabhakar M.D. Room: [facility] ENDOSCOPY ROOM 1 Note Status: Finalized [...] passed under direct vision.The Pediatric Colonoscope [id number]-[id number] was introduced through the anus and advanced [...] 8:55 AM Procedure Code(s): --- Professional --- 31045, Colonoscopy, flexible; with biopsy, single or multiple Diagnosis Code(s): --- Professional --- K64.8, Other hemorrhoids D12.0, Benign neoplasm of cecum D12.3, Benign neoplasm of transverse colon (hepatic flexure orsplenic flexure) K57.30, Diverticulosis of large intestine without perforation orabscess without bleeding CPT copyright 2017 [employer]. All rights reserved. The codes documented in this report are preliminary and upon landscape maintenance internship reviewmay be revised to meet current compliance requirements. Recognized by the [employer] for promoting quality in endoscopy Jm Prabhakar MD ENDOSCOPY PROCEDURES Final Result from Last 3 Months or Most Recently Relevant to Health Maintenance Insurance MEDICARE MEDICARE MEDICARE MEDICARE Advance Directives For more information, please contact: [phone] Documents on File Type Date Recorded Patient Tree Driller Expl anation ADVANCE DIRECTIVE 03/02/2025 [facility] - YS ORDER FOR PT PREFERENCES * Full Code (Latest Code Status on File) Date Activated Date Inactivated Comments 06/16/2021 9:01 PM 06/23/2021 11:15 PM * Full Code Date Activated Date Inactivated Comments 11/17/2019 8:08 AM 11/17/2019 2:50 PM * Full Code Date Activated Date Inactivated Comments 11/17/2019 8:08 AM 11/17/2019 8:08 AM Care Teams Fur Glazer Relationship Specialty Start Date End Date Keyonna Delatorre MD [address] [place] [address] PCP - General 12/27/16 Nguyen Segovia OD [address] [place] [address] Consulting Physician Optometry 11/24/17 Marly Koch DO [address] [place] [address] Consulting Physician Optometry 06/11/18 Ree Carrero OD [address] [place] [address] Consulting Physician Optometry 02/14/22
--- OUTSIDE RECORDS SUMMARY | 2025-04-25 14:58 | XMS_ITS | Clinical Summary ---
Author Organization [facility] Address [address] [place] [address] Care Team Providers Care Behavioral Health Director Name Role Phone Jina Koch MD Primary Care Provider [phone] Source Comments [facility],non-[facility] and Associated Physician Practices is amultiple site organization consisting of ambulatory clinics and hospital sitesin [place], [place], [place] and [place]. This disclosure is being madepursuant to the Care Everywhere program and may not contain all information available regarding this patient. Last updated 18.[facility] Allergies Active Allergy Reactions Criticality Noted Date [...] on file Legal Sex Female 1:11 PM TACK WELDER Gender Identity Not on file Sexual Orientation Not on file Last Filed Vital Signs Vital Sign Reading Time Taken Comments Blood Pressure 124/72 11/26/2011 11:40 AM TACK WELDER Pulse 86 11/26/2011 11:40 AM TACK WELDER Temperature 36.9 C (98.4 F) 11/26/2011 8:19 AM TACK WELDER Respiratory Rate 16 11/26/2011 11:40 AM TACK WELDER Oxygen Saturation 96% 11/26/2011 11:40 AM TACK WELDER Inhaled Oxygen Concentration - - Weight 80.7 kg (178 lb) 11/26/2011 8:19 AM TACK WELDER Height 157.5 cm (5' 2) 11/26/2011 8:19 AM TACK WELDER Body Mass Index 32.56 11/26/2011 8:19 AM TACK WELDER Plan of Treatment Health Maintenance Due Date [...] complete this topic Insurance MEDICARE Care Teams Behavioral Health Director Relationship Specialty Start Date End Date Jina Koch MD PCP - General Internal Medicine 11/25/11
--- OUTSIDE RECORDS SUMMARY | 2025-04-25 14:58 | XMS_ITS | Continuity of Care Document ---
Author Organization [facility] Address [address] [place] [address] Phone Care Team Providers Care Bridge Repairer Name Role Phone Administrative, Provider Unavailable Unavail [...] Date Provider Providers Copied on Encounter [facility], [address] [place] [address], [id number], [place] tel:[phone] [facility] No Information 0200 7 Administrative Provider. [address] [facility] [address], [place] [address], [place], [place], [id number], [place]. tel:[phone] Office/outpa tient visit,est, mod [facility], [address] [place] [address], [id number], [place] tel:[phone] [facility] No Information 8200 7 Anthony Aguilar. [address], [place] [address], [place], [place], [id number], [place]. tel:[phone] Office consultation , moderate-hig h [facility], [address], [place], [place], [id number], [place] tel:[phone] [facility] No Information 7 Anthony Aguilar. [address], [place], [place], [id number], [place]. tel:[phone] Family History Family Member Type Diagnosis Age At Onset No Information Payers Payer name Insurance type Covered constitution party ID Authoriza tion(s) No Information Social [...]
--- OUTSIDE RECORDS SUMMARY | 2025-04-25 14:58 | XMS_ITS | Clinical Summary ---
Author Organization [facility] Address [address] [facility], [place] [address] Phone Care Team Providers Care Migratory Farm Hand Name Role Phone Isac Fregoso MD Primary Care Provider [phone] Chuck Romano DPM Unavailable [phone] Allergies Active Allergy Reactions Criticality Noted [...] this topic Medical Devices Implanted Type Area Senior Chemist Device Identifier Shelf Expiration Date Model / Serial / Lot Biofoam Wedge Implanted:Qty: 1 on 09/06/2016 by Chuck Romano DPM at [facility] Left: Foot [employer] 03/16/2024 [id number] / / [id number] Pro-Toe Vo Blade Implant Implanted:Qty: 1 on 09/06/2016 by Chuck Romano DPM at [facility] Left: Foot [email or web address] 11/11/2023 [id number] / / [id number] Snap Off Screw Implanted:Qty: 1 on 09/06/2016 by Chuck Romano DPM at [facility] Left: Foot [employer] [id number] / / [id number] Insurance MEDICARE Care Teams Migratory Farm Hand Relationship Specialty Start Date End Date Isac Fregoso MD [employer], [address] [place] [address] PCP - General Infectious Disease 03/07/16 Chuck Romano DPM [employer], [address] [place] [address] Podiatry 03/14/16
--- OUTSIDE RECORDS SUMMARY | 2025-04-25 14:58 | XMS_ITS | Referral Summary ---
Author Organization [facility] Address [address] [place] [address] Care Team Providers Care Outside Plant Engineer Name Role Phone Keyonna Delatorre MD Primary Care Provider [phone] Nguyen Segovia OD Unavailable [phone] Marly Koch DO Unavailable [phone] Ree Carrero OD Unavailable + Encounters Date Type Department Care Team Description 03/02/2025 Telephone [facility] [place] [address] [facility] [address] [place] [address] Albania Dillard 03/02/2025 9:30 AM CDT Office Visit [facility] [place] [facility] [address] [facility] [address] [place] [address] Bessy Gonzalez NP Type 2 [...] 2023. Assessment & Plan (08/07/2024 4:46 PM ECONOMIC ADVISER): New problem identified earlier this year. She [...] week Assessment & Plan (10/15/2023 10:52 AM ECONOMIC ADVISER): Ten year cardiovascular risk is about 37%. She does not want to take a cholesterol medicine. She wants to keep working on her diet. We will see her back in six months. Vitamin D deficiency 10/01/2023 Overview (10/10/2023): Mild Assessment & Plan (08/02/2024 10:09 AM ECONOMIC ADVISER): New problem as of earlier this year, unchanged despite taking a calcium plus vitamin D3 supplement. We ordered a high dose vitamin D2 supplement and we will check a follow-up level in several months. Assessment & Plan (11/01/2023 11:58 AM ECONOMIC ADVISER): She takes a supplement. We will check a follow-up level with her next set of labs in six months. Closed fracture of malleolus of left ankle with routine healing 08/28/2023 Overview (10/10/2023): She missed the last step on stairs at home, heard a pop, went to ER at [facility]. Follow-up imaging on 09/03/2023 at [facility] in [place] shows normal healing. >>OVERVIEW FOR CLOSED FRACTURE OF PART OF FIBULA WRITTEN ON 10/10/2023 5:29 AM BY KEYONNA DELATORRE MD Subacute transverse fracture near tip of distal left fibula without remarkable displacement or angulation. Calcaneal spurs. [facility]. Assessment & Plan (08/02/2024 10:05 AM ECONOMIC ADVISER): New problem as of last winter. She [...] decision. Assessment & Plan (10/15/2023 10:52 AM ECONOMIC ADVISER): She took a bad step off of [...] list. Assessment & Plan (10/09/2022 10:40 AM ECONOMIC ADVISER): She has chronic, probably non-allergic, sinus congestion [...] injury. Assessment & Plan (08/27/2020 3:39 PM ECONOMIC ADVISER): Her right shoulder has been bothering her [...] (10/08/2022): Added automatically from request for surgery [id number], Tubular adenoma, transverse colon, removed, Dr. Prabhakar, [facility], 11/17/2019. Low bone density 06/21/2019 Overview (11/11/2023): [...] -1.6. Assessment & Plan (08/02/2024 10:08 AM ECONOMIC ADVISER): Chronic, present for more than five years with a recent fragility fracture. We recommended treatment with a bisphosphonate, PTH analogue, or osteoclast inhibitor, risks of various medications discussed. She wants to think about the options and let me know. Part of the problem is that she has difficulty affording prescription medications. Assessment & Plan (10/15/2023 10:54 AM ECONOMIC ADVISER): She takes calcium and vitamin-D supplements. She is due for a follow-up bone density which we ordered today. Assessment & Plan (04/09/2023 10:11 AM CDT): She takes calcium and vitamin-D supplements. Continue same. Assessment & Plan (10/09/2022 10:32 AM ECONOMIC ADVISER): She is on calcium and vitamin D supplements. Continue same. Assessment & Plan (10/07/2021 5:21 AM ECONOMIC ADVISER): She takes calcium and vitamin-D. A recent bone density was stable compared to two years ago, normal at the lumbar spine and low bone density in the hip. Continue same. Assessment & Plan (02/21/2021 2:04 PM CDT): She is on a calcium plus vitamin-D supplement. Continue same. Assessment & Plan (08/21/2020 12:53 PM ECONOMIC ADVISER): She takes calcium and vitamin-D supplements. Continue same. Assessment & Plan (02/14/2020 10:14 AM CDT): She has started to take a calcium and vitamin-D supplement which should mitigate some of the mild osteopenia diagnosed recently. Family hx of colon cancer 05/12/2019 Overview (05/12/2019): Added automatically from request for surgery [id number] Chronic sphenoidal sinusitis 10/10/2018 Overview (02/13/2020): Resolved after surgery per ENT Assessment & Plan (10/09/2022 10:29 AM ECONOMIC ADVISER): She has chronic, probably non-allergic, sinus congestion and drainage. This improved for a while after sphenoid sinus surgery about 4 years ago, but symptoms have recurred. She did not respond to a 3 month trial of oral antihistamines last year. We will have her try Astelin or Flonase which are available OTC (starting with Astelin). Assessment & Plan (10/28/2018 8:31 AM ECONOMIC ADVISER): Patient has been diagnosed with a chronic fungal sphenoid sinusitis. Patient is status post image guided endoscopic left sphenoidotomy with evacuation of sphenoid contents. Preoperative symptoms have resolved. Patient is no longer experiencing a left-sided headache. No further treatment is indicated at this time. Patient can follow back up as needed. Assessment & Plan (10/10/2018 10:19 AM ECONOMIC ADVISER): Patient has a completely opacified left sphenoid [...] hypertension Assessment & Plan (08/07/2024 4:49 PM ECONOMIC ADVISER): Chronic, present for more than five years, [...] 166/71 Assessment & Plan (11/01/2023 11:57 AM ECONOMIC ADVISER): Systolic blood pressure in the office is [...] day. Assessment & Plan (10/09/2022 10:31 AM ECONOMIC ADVISER): Blood pressure is in a good range on current therapy (Coreg 12.5 mg twice a day). She denies chest pain or pressure. Labs are stable. Continue same. Lab Results Component Value Date GLUCOSE 129 (H) 09/06/2022 CALCIUM 9.5 09/06/2022 SODIUM 140 09/06/2022 POTASSIUM 4.6 09/06/2022 CO2 25 09/06/2022 CHLORIDE 107 09/06/2022 BUNSER 22 09/06/2022 CREATININE 0.77 09/06/2022 Assessment & Plan (10/04/2021 2:54 PM ECONOMIC ADVISER): Systolic blood pressure is mildly elevated today. [...] 02/13/2021 Assessment & Plan (08/21/2020 12:53 PM ECONOMIC ADVISER): Blood pressure is in a good range [...] months. Assessment & Plan (11/26/2018 10:43 AM ECONOMIC ADVISER): Blood pressure remains mildly elevated. She did [...] months. Assessment & Plan (11/24/2017 9:50 AM ECONOMIC ADVISER): Blood pressure is improved but still somewhat borderline. If it remains elevated at her next visit, we will probably want to add a medication or increase the dose of carvedilol. Carpal tunnel syndrome 07/22/2016 Overview (01/04/2017): Carpal tunnel syndrome Polyp of colon 02/13/2016 Overview (02/13/2020): Tubular adenoma, transverse colon, removed, Dr. Prabhakar, [facility], 11/17/2019. Type 2 diabetes mellitus without complication Overview (01/03/2017): Type 2 DM Assessment & Plan (08/07/2024 4:51 PM ECONOMIC ADVISER): Chronic, uncontrolled, hemoglobin A1c currently not at [...] 10/01/2023 Assessment & Plan (10/15/2023 10:57 AM ECONOMIC ADVISER): She takes metformin. Diabetes control is adequate. [...] 09/06/2022 Assessment & Plan (10/09/2022 10:33 AM ECONOMIC ADVISER): Blood sugar is well-controlled on current Rx. [...] visit. Assessment & Plan (10/07/2021 5:21 AM ECONOMIC ADVISER): Blood sugars generally run 100-120 mg/dL in [...] 02/13/2021 Assessment & Plan (08/27/2020 3:34 PM ECONOMIC ADVISER): Blood sugars have been in a good [...] labs. Assessment & Plan (12/01/2018 2:35 PM ECONOMIC ADVISER): Hemoglobin A1c has a bit higher at [...] therapy. Assessment & Plan (11/24/2017 9:49 AM ECONOMIC ADVISER): Hemoglobin A1c on recent labs was 6.5 which represents pretty good control. Sometimes her morning blood sugars are 150-160, other times as low as 89. She will continue to work on her diet and continue medications as prescribed. Follow-up in six months. Family history of ischemic h eart disease and other diseases of the circulatory system 09/12/2011 Overview (08/21/2020): Per [facility] records. Neuropathy 02/27/2006 Overview (01/03/2017): Neuropathy Assessment & Plan (11/26/2018 10:44 AM ECONOMIC ADVISER): She has a peripheral neuropathy in her [...] fluctuates. Assessment & Plan (08/02/2024 10:03 AM ECONOMIC ADVISER): Chronic, uncontrolled but stable. Weight has not really changed. We encouraged attention to her diet and hopefully some weight loss. Assessment & Plan (10/15/2023 10:54 AM ECONOMIC ADVISER): We encouraged attention to her diet, and hopefully a little bit of weight loss. Assessment & Plan (04/09/2023 10:11 AM CDT): Her weight is stable. We encouraged attention to her diet and hopefully a little bit of weight loss. Assessment & Plan (10/09/2022 10:32 AM ECONOMIC ADVISER): Her weight is stable. We encouraged attention to her diet and some weight loss. Assessment & Plan (10/04/2021 2:52 PM ECONOMIC ADVISER): Her weight is roughly unchanged. I encouraged attention to her diet, and hopefully some weight loss. Assessment & Plan (02/21/2021 2:03 PM CDT): Her weight is slightly higher. I encouraged attention to her diet and some weight loss. Assessment & Plan (08/21/2020 12:54 PM ECONOMIC ADVISER): Her weight is stable, or perhaps up [...] reducing. Assessment & Plan (11/24/2017 9:51 AM ECONOMIC ADVISER): Weight is relatively stable. She seems to [...] Medicine. Assessment & Plan (08/27/2020 3:29 PM ECONOMIC ADVISER): She has had a cough for 20 [...] 15 years. She has been to allergists, [employer], and has had trials of various medications [...] workup. Assessment & Plan (11/24/2017 9:54 AM ECONOMIC ADVISER): She continues to have a chronic cough. [...] weeks. Assessment & Plan (10/04/2021 2:53 PM ECONOMIC ADVISER): She had a moderately difficult course with [...] and bodyaches. Pt was given state of [place] guidelines for quarant[place]. I advised that she [...] (02/13/2020): Added automatically from request for surgery [id number], Tubular adenoma, transverse colon, removed, Dr. Prabhakar [facility]. Hx of colonic polyp 05/12/2019 02/13/20 Overview (02/13/2020): Added automatically from request for surgery [id number], Tubular adenoma, transverse colon, removed, Dr. Prabhakar, [facility], 11/07/19, Dr. Prabhakar. Elevated blood pressure reading 09/26/2018 11/26/2018 Overview (10/05/2018): Moderate BP elevation at home in association with a bad headache. Assessment & Plan (10/07/2018 10:39 AM ECONOMIC ADVISER): Blood pressure is again elevated but better than yesterday, corresponding to better control of her headache pain. If it remains elevated at her follow-up, we will definitely want to add something to her regimen or increase the dose of carvedilol. Acute non-recurrent sphenoidal sinusitis 08/05/2018 10/28/2018 Assessment & Plan (10/07/2018 10:37 AM ECONOMIC ADVISER): Sinus CT shows the left sphenoid sinus [...] weeks. Assessment & Plan (10/05/2018 2:42 PM ECONOMIC ADVISER): She started to have a left-sided temporal [...] drainage. Assessment & Plan (10/26/2018 8:34 AM ECONOMIC ADVISER): We put her on Tegretol thinking that [...] time. Assessment & Plan (10/05/2018 2:45 PM ECONOMIC ADVISER): As noted elsewhere, she has had a [...] 03/02/2025 Assessment & Plan (10/15/2023 10:57 AM ECONOMIC ADVISER): About five years ago, we evaluated her [...] contrast. Assessment & Plan (11/26/2018 10:45 AM ECONOMIC ADVISER): The right flank pain for which she [...] [facility]. Assessment & Plan (11/24/2017 10:24 AM ECONOMIC ADVISER): For the last couple of months, she [...] in 2012 shows a possible old anterior PA. EKG in the office today shows no [...] monitor. Assessment & Plan (11/24/2017 9:51 AM ECONOMIC ADVISER): She continues to have problems with heartburn. [...] on file Legal Sex Female 2:14 AM ECONOMIC ADVISER Gender Identity Not on file Sexual Orientation [...] st Contact Info) Description 11/11/2025 10:30 AM ECONOMIC ADVISER Hospital Encounter [address] [place] [address] Jm Prabhakar MD 4 [facility] [address] [place] [address] 11/11/2025 10:30 AM ECONOMIC ADVISER - 11/11/2025 11:00 AM ECONOMIC ADVISER Surgery [address] [address] Jm Prabhakar MD 4 [facility] [address] [place] [address] COLONOSCOPY Scheduled Procedures Name Priority Associated Diagnoses Date/Ti me COLONOSCOPY History of colonic polyps Family history of colon cancer 11/11/2025 10:30 AM ECONOMIC ADVISER Medical Devices Implanted Type Area Hand Spinner Device Identifier Shelf Expiration Date Model / [...] Read Routine (OP Routine) 11/10/2023 2:29 PM ECONOMIC ADVISER Menopause HEPATITIS C ANTIBODY Routine 12/06/2019 8:30 AM CDT COLONOSCOPY 11/17/2019 8:55 AM ECONOMIC ADVISER from Last 3 Months or Most Recently [...] ORDERABLES Final Re sult [facility] [address] [place] [address] * (ABNORMAL) Hemoglobin A1c (01/11/2025 8:37 AM [...] BLOOD ORDERABLES Final Re sult [facility] [address] [facility] [place] [address] * Lipid panel (01/11/2025 8:37 AM CDT) Pathologist [facility] Cholesterol 192 <200 mg/dL [facility] [...] LDL-C. Brendan BUCHANAN et al. JOHN. 2013;310(19): 1435-5824 (http://education.WISETIVI.Incomparable Things/faq/HEW646) Chol/HDL ratio 2.4 <5.0 (calc) [facility] [...] BLOOD ORDERABLES Final Re sult [facility] [address] [address] * (ABNORMAL) Comprehensive metabolic panel (01/11/2025 8:37 [...] BLOOD ORDERABLES Final Re sult [facility] [address] [id number] * DIABETES EYE EXAM (01/06/2025 10:08 AM [...] 1 or 2 Site (11/10/2023 2:29 PM ECONOMIC ADVISER) Anatomical Region Laterality Modality Body N/A Other 11/10/2023 8:11 PM ECONOMIC ADVISER Narrative 11/10/2023 8:12 PM ECONOMIC ADVISER EXAM DESCRIPTION: DEXA AXIAL SKELETON BONE DENSITY 1 OR MORE SITES REASON FOR STUDY: 72 y/o year old F with given history of: menopause Hand Spinner/Model: [employer] (S/N [id number]) CLINICAL INFORMATION: Current height: 62 inches Maximum [...] Stiven Galeano M.D. MF: KASIE Report ID: [id number] Reading Location: [place] [address] Procedure Note Stiven Galeano MD - 11/10/2023 EXAM DESCRIPTION: DEXA AXIAL SKELETON BONE DENSITY 1 OR MORE SITES REASON FOR STUDY: 72 y/o year old F with given history of: menopause Hand Spinner/Model: [employer] (S/N 84495) CLINICAL INFORMATION: Current height: 62 inches Maximum [...] Stiven Galeano M.D. MF: KASIE Report ID: [id number] Reading Location: [place] [address] Keyonna Delatorre MD IMG DXA PROCEDURES Final Resu lt * Hepatitis C antibody (12/06/2019 8:30 AM CDT) Hep C Ab NON-REACT JESUS MANUEL NON-REACT JESUS MANUEL [facility] [place] SIGNAL TO CUT-OFF 0.01 <1.00 [facility] [place] Comment: HCV antibody was non-reactive. There is no laboratory evidence of HCV infection. In most cases, no further action is required. However, if recent HCV exposure is suspected, a test for HCV RNA (test code 08275) is suggested. For additional information please refer to http://education.Door 6/faq/OBG77x6 (This link is being provided for informational/ educational purposes only.) 12/06/2019 8:30 AM CDT 12/07/2019 8:03 AM CDT Narrative [facility] - 12/07/2019 1:34 PM CDT FASTING:YES FASTING: YES Resulting Agency Comment Performing Organization Information: Site ID: MD Name: [facility] Address: [address] [address] Director: Jeff Duran D.O., MPH Keyonna Delatorre MD LAB MICROBIOLOGY - GENERAL OR DERABLES Final Result [facility] [place] To * COLONOSCOPY (11/17/2019 8:55 AM ECONOMIC ADVISER) Anatomical Region Laterality Modality Other Narrative Procedure Note Jm Prabhakar MD - 11/17/2019 8:55 AM CST [facility] Patient Name: Allyson Reyes Procedure Date: 11/17/2019 8:55 AM Date of : 1950 Admit Type: Outpatient Age: 68 Gender: Female Attending MD: Jm Prabhakar M.D. Room: [facility] ENDOSCOPY ROOM 1 Note Status: Finalized Patient [...] passed under direct vision.The Pediatric Colonoscope [id number] was introduced through the anus and advanced [...] 8:55 AM Procedure Code(s): --- Professional --- 66248, Colonoscopy, flexible; with biopsy, single or multiple Diagnosis Code(s): --- Professional --- K64.8, Other hemorrhoids D12.0, Benign neoplasm of cecum D12.3, Benign neoplasm of transverse colon (hepatic flexure orsplenic flexure) K57.30, Diverticulosis of large intestine without perforation orabscess without bleeding CPT copyright 2017 [employer]. All rights reserved. The codes documented in this report are preliminary and upon printed circuit board panels trimmer reviewmay be revised to meet current compliance requirements. Recognized by the [employer] for promoting quality in endoscopy Jm Prabhakar MD ENDOSCOPY PROCEDURES Final Result from Last 3 Months or Most Recently Relevant to Health Maintenance Insurance MEDICARE MEDICARE MEDICARE MEDICARE Advance Directives For more information, please contact: [phone] Documents on File Type Date Recorded Patient Drainage Inspector Expl anation ADVANCE DIRECTIVE 03/02/2025 [facility] - YS ORDER FOR PT PREFERENCES * Full Code (Latest Code Status on File) Date Activated Date Inactivated Comments 06/16/2021 9:01 PM 06/23/2021 11:15 PM * Full Code Date Activated Date Inactivated Comments 11/17/2019 8:08 AM 11/17/2019 2:50 PM * Full Code Date Activated Date Inactivated Comments 11/17/2019 8:08 AM 11/17/2019 8:08 AM Care Teams Outside Plant Engineer Relationship Specialty Start Date End Date Keyonna Delatorre MD [address] [place] [address] PCP - General 12/27/16 Nguyen Segovia OD [address] [place] [address] Consulting Physician Optometry 11/24/17 Marly Koch DO [address] [place] [place] [address] Consulting Physician Optometry 06/11/18 Ree Carrero OD [address] [place] [address] Consulting Physician Optometry 02/14/22
--- OUTSIDE RECORDS SUMMARY | 2025-04-25 14:58 | XMS_ITS | Encounter Summary ---
Author Organization [facility] Address [address] [place] [address] Care Team Providers Care Customer Service Supervisor Name Role Phone Isac Fregoso MD Primary Care Provider [phone] Nguyen Segovia OD Unavailable [phone] Marly Koch DO Unavailable [phone] Ree Carrero OD Unavailable + Encounter Details Date Type Department Care Team (Late st Contact Info) Description 01/06/[address] [facility] [address] [place] [phone] Scanning, Provider Social History Tobacco Use Types [...] on file Legal Sex Female 2:14 AM ETHYLBENZENE CONVERTER HELPER Gender Identity Not on file Sexual Orientation Not on file documented as of this encounter Plan of Treatment Upcoming Encounters Date Type Department Care Team (Late st Contact Info) Description 11/11/2025 10:30 AM ETHYLBENZENE CONVERTER HELPER Hospital Encounter [address] [address] Jm Prabhakar MD 4 [facility] [address] [place] [address] 11/11/2025 10:30 AM ETHYLBENZENE CONVERTER HELPER - 11/11/2025 11:00 AM ETHYLBENZENE CONVERTER HELPER Surgery [address] [address] Jm Prabhakar MD [address] [facility] [address] [place] [address] COLONOSCOPY Scheduled Procedures Name Priority Associated Diagnoses Date/Ti me COLONOSCOPY History of colonic polyps Family history of colon cancer 11/11/2025 10:30 AM ETHYLBENZENE CONVERTER HELPER documented as of this encounter Procedures Procedure Name Priority Date/Time Associated Diagnosis Comments PROCEDURE - RESULT 01/06/2025 documented in this encounter Results * PROCEDURE - RESULT (01/06/2025) us Provider Scanning Final Result documented in this encounter Visit Diagnoses Not on filedocumented in this encounter Care Teams Customer Service Supervisor Relationship Specialty Start Date End Date Isac Fregoso MD [address] [place] [address] PCP - General 12/27/16 Nguyen Segovia OD [address] [place] [address] Consulting Physician Optometry 11/24/17 Marly Koch DO [address] [place] [address] Consulting Physician Optometry 06/11/18 Ree Carrero OD [address] [place] [address] Consulting Physician Optometry 02/14/22 documented as of this encounter
[2025-04-25] MEDS: NEOMYCIN/POLYMYXIN/BACITRACIN OINTMENT PACKET 1 PACKET TOPICAL (15:28)
[2025-04-25 15:39] VITALS: BP 148/62; PULSE 69; RESP 20; O2SAT 95
== END 2025-04-25 15:42 | disposition home or self-care (01) ==
PROVIDERS: Emergency Provider Emergency Medicine; PCP Internal Medicine Infectious Disease
DX: S61.411A Laceration without foreign body of right hand, initial encounter (principal); W26.8XXA Contact with other sharp object(s), not elsewhere classified, initial encounter; Z23 Encounter for immunization
CPT/HCPCS: 12004; 90471; 90715; 93005; 99282; J2003